=== PATIENT | female | born 1990 | race Caucasian/White ===

== ENCOUNTER 2016-10-17 13:46 | Emergency (ER) | payer BC ==
[2016-10-17 14:17] VITALS: BP 127/75
--- NOTE | 2016-10-17 14:33 | UC ---
[facility] HPI - HPI Summary HPI Summary: 26 year old female presents with complains of left lower molar abscess. - History of Current Complaint Chief Complaint: UCDentalProblem Stated Complaint: TOOTH PAIN Time Seen by Provider: 10/17/16 14:29 Hx Last Menstrual Period: 28 days - Allergies/Home Medications Allergies/Adverse Reactions: Allergies Allergy/AdvReac Type Severity Reaction Status Date / Time No Known Allergies Allergy Verified 10/17/16 14:18 Home Medications: Home Medications O C 1 tab PO DAILY 10/17/16 [History Confirmed 10/17/16] PMH/Surg Hx/FS Hx/Imm Hx Previously Healthy: Yes - Surgical History Surgical History: Yes Surgery Procedure, Year, and Place: Gallbladder 2011 - Family History Known Family History: Negative: Respiratory Disease - Social History Alcohol Use: Rare Substance Use Type: None Smoking Status (MU): Former Smoker Review of Systems Constitutional: Negative Skin: Negative Eyes: Negative ENT: Dental Pain Respiratory: Negative Cardiovascular: Negative Gastrointestinal: Negative Genitourinary: Negative Motor: Negative Neurovascular: Negative Musculoskeletal: Negative Neurological: Negative Psychological: Negative All Other Systems Reviewed And Are Negative: Yes Physical Exam Triage Information Reviewed: Yes Vital Signs: Initial Vital Signs Temp 37.1 C 10/17/16 14:11 Pulse 81 10/17/16 14:11 Resp 24 10/17/16 14:11 BP 127/75 10/17/16 14:11 Eye Exam: Normal ENT Exam: Normal Dental: Positive: Abscess @ - left lower molar Neck exam: Normal Neck: Positive: 1 Respiratory Exam: Normal Cardiovascular Exam: Normal Abdominal Exam: Normal Musculoskeletal Exam: Normal Neurological Exam: Normal Psychological Exam: Normal Skin Exam: Normal Dental Complaint Course/Dx - Differential Dx/Diagnosis Provider Diagnoses: left lower molar abscess Discharge - Discharge Plan Condition: Stable Disposition: HOME Prescriptions: Amoxicillin/Clavulanate TAB* [Augmentin TAB 875*] 875 mg PO BID #20 tab Chlorhexidine MW 0.12% 473ML* [Peridex Mouth Wash 0.12%*] 0.12 % MT TID PC #480 ml Naproxen [Naprosyn 500 mg] 500 mg PO BID PRN #30 tab PRN Reason: Pain Patient Education Materials: Dental Abscess (ED) Referrals: Non Staff,Doctor [Medical Doctor] -
== END 2016-10-17 14:45 | disposition home or self-care (01) ==
LOC: UCCORT 13:46
DX: K04.7 Periapical abscess without sinus (principal); Z90.49 Acquired absence of other specified parts of digestive tract; Z87.891 Personal history of nicotine dependence
CPT/HCPCS: 99212; G0463

== ENCOUNTER 2016-12-11 09:18 | Emergency (ER) | payer BC ==
[2016-12-11 09:45] VITALS: BP 129/68
--- NOTE | 2016-12-11 10:01 | UC ---
[facility] HPI - HPI Summary HPI Summary: 26 yo female had left lower molar removed 4 days ago pain markedly increased last PM unable to sleep no relief with motrin - History of Current Complaint Chief Complaint: UCDentalProblem Stated Complaint: DENTAL PAIN Time Seen by Provider: 12/11/16 09:48 Hx Obtained From: Patient Hx Last Menstrual Period: 11/12/16 Onset/Duration: Gradual Onset, Lasting Hours Severity: Severe Pain Intensity: 8 Pain Scale Used: 0-10 Numeric Aggravating Factor(s): Heat, Cold, Chewing Alleviating Factor(s): Nothing Related History: Swelling - Allergies/Home Medications Allergies/Adverse Reactions: Allergies Allergy/AdvReac Type Severity Reaction Status Date / Time No Known Allergies Allergy Verified 12/11/16 09:45 Home Medications: Home Medications Ibuprofen TAB* [Motrin TAB* 600 MG] 600 mg PO Q6H PRN 12/11/16 [History Confirmed 12/11/16] PMH/Surg Hx/FS Hx/Imm Hx Previously Healthy: Yes - Surgical History Surgical History: Yes Surgery Procedure, Year, and Place: Gallbladder 2011 - Family History Known Family History: Negative: Cardiac Disease, Hypertension, Diabetes, Respiratory Disease - Social History Alcohol Use: Rare Substance Use Type: None Smoking Status (MU): Never Smoked Tobacco - Immunization History Most Recent Influenza Vaccination: no Review of Systems Constitutional: Negative Skin: Negative Eyes: Negative ENT: Dental Pain Respiratory: Negative Cardiovascular: Negative Gastrointestinal: Negative Genitourinary: Negative Motor: Negative Neurovascular: Negative Musculoskeletal: Negative Neurological: Negative Psychological: Negative Is Patient Immunocompromised?: No All Other Systems Reviewed And Are Negative: Yes Physical Exam Triage Information Reviewed: Yes Appearance: Well-Appearing, Well-Nourished, Pain Distress Vital Signs: Initial Vital Signs Temp 98.3 F 12/11/16 09:41 Pulse 84 12/11/16 09:41 Resp 14 12/11/16 09:41 BP 129/68 12/11/16 09:41 Pulse Ox 99 12/11/16 09:41 Vital Signs Reviewed: Yes Eyes: Positive: Conjunctiva Clear ENT: Positive: Hearing grossly normal, TMs normal. Negative: Nasal congestion, Nasal drainage, Tonsillar exudate, Trismus, Muffled/hoarse voice Dental: Negative: Percussion Tenderness @, Gross Decay/Caries @, Dental Fracture @, Abscess @ Neck: Positive: Supple, Nontender, No Lymphadenopathy Respiratory: Positive: Lungs clear, Normal breath sounds, No respiratory distress, No accessory muscle use Cardiovascular: Positive: RRR, No Murmur Musculoskeletal: Positive: ROM Intact, No Edema Neurological: Positive: Alert Psychological Exam: Normal Skin Exam: Normal Dental Complaint Course/Dx - Differential Dx/Diagnosis Provider Diagnoses: Dry socket s/p extraction Discharge - Discharge Plan Condition: Stable Disposition: HOME Prescriptions: HYDROcodone/ACETAMIN 5-325 MG* [Braman 5-325 TAB*] 1 tab PO Q4H PRN #10 tab MDD 6 PRN Reason: Pain Penicillin VK 500 MG TAB(NF) [Penicillin VK 500 mg Tab] 500 mg PO QID #28 tab Patient Education Materials: Dry Socket (ED) Referrals: Herbert Nolen DO [Primary Care Provider] - Additional Instructions: continue ibuprofen call your dentist in AM Images Dental: 1 - empty socket-no clot
== END 2016-12-11 10:01 | disposition home or self-care (01) ==
LOC: UCCORT 09:18
DX: M27.3 Alveolitis of jaws (principal)
CPT/HCPCS: 99212; G0463

== ENCOUNTER 2017-02-11 19:38 | Emergency (ER) | payer BC ==
[2017-02-11 20:31] VITALS: BP 129/76
[2017-02-11] MEDS ORDERED: Amoxicillin PO (*) 500 MG CAP PO ONE (20:40)
--- NOTE | 2017-02-11 20:40 | UC ---
Dental HPI - HPI Summary HPI Summary: 1 st molar right lower dental pain tooth is broken- - History of Current Complaint Chief Complaint: UCDentalProblem Stated Complaint: TOOTH PAIN Time Seen by Provider: 02/11/17 20:35 Hx Obtained From: Patient Hx Last Menstrual Period: 01/20 ?: No Onset/Duration: Sudden Onset, Worse Since - this morning Severity: Moderate Pain Intensity: 8 Pain Scale Used: 0-10 Numeric Alleviating Factor(s): Nothing Related History: Previous Dental Care on Same Tooth - Allergies/Home Medications Allergies/Adverse Reactions: Allergies Allergy/AdvReac Type Severity Reaction Status Date / Time No Known Allergies Allergy Verified 02/11/17 20:31 PMH/Surg Hx/FS Hx/Imm Hx Previously Healthy: Yes - Surgical History Surgical History: Yes Surgery Procedure, Year, and Place: Gallbladder 2011 - Family History Known Family History: Negative: Cardiac Disease, Hypertension, Diabetes, Respiratory Disease - Social History Occupation: Employed Full-time Lives: With Family Alcohol Use: Rare Substance Use Type: None Smoking Status (MU): Never Smoked Tobacco - Immunization History Most Recent Influenza Vaccination: no Review of Systems Constitutional: Negative Skin: Negative Eyes: Negative ENT: Dental Pain Respiratory: Negative Cardiovascular: Negative Gastrointestinal: Negative Genitourinary: Negative Motor: Negative Neurovascular: Negative Musculoskeletal: Negative Neurological: Negative Psychological: Negative Is Patient Immunocompromised?: No All Other Systems Reviewed And Are Negative: Yes Physical Exam Triage Information Reviewed: Yes Appearance: Well-Appearing, Well-Nourished, Pain Distress Vital Signs: Initial Vital Signs Temp 97.9 F 02/11/17 20:27 Pulse 77 02/11/17 20:27 Resp 22 02/11/17 20:27 BP 129/76 02/11/17 20:27 Vital Signs Reviewed: Yes Eye Exam: Normal Eyes: Positive: Conjunctiva Clear ENT Exam: Normal ENT: Positive: Normal ENT inspection, Hearing grossly normal, Pharynx normal, TMs normal, Dental tenderness, Uvula midline. Negative: Nasal congestion, Nasal drainage, Trismus, Muffled voice, Hoarse voice, Sinus tenderness Dental Exam: Normal Dental: Positive: Gross Decay/Caries @, Dental Fracture @ Neck exam: Normal Neck: Positive: Supple, Nontender, No Lymphadenopathy Respiratory Exam: Normal Respiratory: Positive: Chest non-tender, Lungs clear, Normal breath sounds, No respiratory distress, No accessory muscle use Cardiovascular Exam: Normal Cardiovascular: Positive: RRR, No Murmur, Pulses Normal, Brisk Capillary Refill Musculoskeletal Exam: Normal Musculoskeletal: Positive: Strength Intact, ROM Intact, No Edema Neurological Exam: Normal Neurological: Positive: Alert, Muscle Tone Normal Psychological Exam: Normal Skin Exam: Normal Dental Complaint Course/Dx - Course Course Of Treatment: pain med amoxicillin follow with [facility] on Monday as planned - Differential Dx/Diagnosis Provider Diagnoses: Dental pain, broken right lower tooth Discharge - Discharge Plan Condition: Stable Disposition: HOME Prescriptions: Acetaminop/Codeine 30 MG TAB* [Tylenol/Codeine 30 MG TAB*] 1 tab PO Q4H PRN #20 tab MDD 6 PRN Reason: pain Amoxicillin PO (*) [Amoxicillin 500 MG CAP*] 500 mg PO TID #30 cap Patient Education Materials: Toothache (ED) Referrals: Herbert Nolen DO [Primary Care Provider] - Additional Instructions: Follow with [facility] on Monday as planned
[2017-02-11] MEDS ORDERED: Acetaminop/Codeine 30 MG TAB* 1 TAB (300 MG/30 MG) PO ONE (20:41)
--- OUTSIDE RECORDS SUMMARY | 2017-02-11 21:12 | XMS REPORT ---
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 Payers Type Date Identification Numbers Payment Provider Subscriber Health Maintenance Policy Number: BCBS o [employer] (O) [id number] PayID: [id number] [address] [address] [place] [address] Problems Date Description Provider Status Onset: 11/19/2012 Vesicular eczema of hands and/or feet Anastasia Adrian MD Active Onset: 11/07/2011 Varicose veins of lower extremity Anastasia Adrian MD Active Onset: 04/18/2011 Vitamin D deficiency Anastasia Adrian MD Active Onset: 01/11/2011 No current problems or disability Active Family History Date Family Member(s) Problem(s) Comments Father Osteoarthritis Mother Obesity Mother Depression Second Sister Obesity Social History Type Date Description Comments Marital Status Lives With Spouse Lives With Son Occupation [employer] Use Currently consumes alcohol Recreational Drug Use Denies Drug Use Smoking Patient has never smoked Allergies, Adverse Reactions, Alerts Date Description Reaction Status Severity Comments 09/17/2014 NKDA active Medications Medication Date Status Form Strength Qnty SIG Indications Ordering Provider Clindamycin/Benzo 10/27 Active Gel 1-5% 25gm 1 pea size L70.0 navarro Sanchez application blade Hopkins affected PA area once daily Betamethasone 07/26 Active Ointment 0.05% 15uni 1 L20.9 Sesser, Dipropionate ts application Kellie, to hands and PA behind ears twice daily Multivitamins 09/17 Active Capsules OTC 1 by mouth Callum, every day Herbert, DO Nucynta 12/14 Hx Tablets 50mg 28tab 1 by mouth Callum, s twice a day Herbert, - DO 02/01 Levonorgestrel/Et 12/08 Hx Tablets 0.1-20mg- 28tab 1 tablet by Callum hinyl Estradiol mcg s mouth daily Herbert, - DO 02/01 Acetaminophen-Cod 11/07 Hx Tablets 300-30mg 60tab 1 tablet by [id number] Callum eine #3 s mouth every Herbert, - 4 hours as DO 11/26 needed- not fill until 11/17/16 Amoxicillin/Clavu 10/27 Hx Tablets 875-125 20tab 1 by mouth Daniel, lanate Potassium s twice a day Kellie, - x 10 days PA 11/06 Levonorgestrel/Et 09/27 Hx Tablets 0.1-20mg- 28tab 1 tablet by Daniel , hinyl Estradiol mcg s mouth daily Kellie, - PA 10/31 Minocycline HCL 09/15 Hx Capsules 100mg 90cap 1 capsule L70.0 Daniel, s twice daily Kellie, - PA 09/27 Augmentin 05/13 Hx Tablets 500-125mg 20tab 1 by mouth H92.01 Stephanie, s twice a day Sukh, - DO 07/26 Ofloxacin (Otic) 03/25 Hx Solution 0.3% 10ml apply 3 H60.92 drops three Herbert, - times a day DO 03/25 to LEFT ear /2015 x 1 week Ciprofloxacin HCL 03/25 Hx Solution 0.2% 14uni 2 drops in H60.92 ts LEFT ear Herbert, - three times DO 05/13 a day x week Lyrica 01/29 Hx Capsules 75mg 60cap 1 po daily x M79.7 Callum, s 3 days, then Herbert, - 1 po bid DO 03/25 Duloxetine HCL 01/[address] 20mg 30cap 1 by mouth M79.7 , Part s every day Herbert, - *Rx is early DO 03/25 because attempted to increase to bid Trazodone HCL 01/12 Hx Tablets 50mg 60tab 1-2 by mouth M79.7 Nolen, s every night Herbert, - at bedtime DO 03/25 Prednisone 12/29 Hx Tablets 10mg 42tab 6 pills M60.89 Nolen, s daily x 2 Herbert, - days, the 5 01/08 pills daily x 2 day, 4 po daily x 2 day, 3 po daily x 2 day, 2 po daily x2, 1 po daily x 2 day Prednisone 12/23 Hx Tablets 10mg 21tab 6 pills M60.89 s daily x 1 Herbert, - day, the 5 12/29 pills daily x 1 day, 4 po daily x 1 day, 3 po daily x 1 day, 2 po daily x1, 1 po daily x 1 day Tizanidine HCL 12/18 Hx Tablets 4mg 30tab 1 by mouth M54.6 Nolen s every night Herbert, - at bedtime DO 01/19 Acetaminophen-Cod 11/21 Hx Tablets 300-30mg 30tab 1-2 by mouth Callum eine #3 s every 8 Herbert, - hours as DO 01/19 needed pain Levocetirizine 11/20 Hx Tablets 5mg 30tab 1 by mouth 477.9 Callum Dihydrochloride /2014 s every day Herbert, - DO 12/18 Meloxicam 11/20 Hx Tablets 15mg 30tab 1 by mouth 724.5 Nolen, /2014 s every day Herbert, - DO 12/18 Duloxetine HCL 10/[address] 20mg 30cap 1 by mouth 648.44 Nolen, Part s every day Herbert, - DO 12/18 Venlafaxine HCL 09/17 Hx Caps ER 37.5mg 30cap 1 by mouth 648.44 Callum, /2014 24HR s every day Herbert, - DO 10/13 Ashlyna 00/00 Hx Tablets 0.15-0.03 1 by mouth Ismael, /0000 &0.01 every day Jackeline - mg 11/20 Meloxicam 00 Hx Tablets 7.5mg 1 by mouth Unknown /0000 every day - 03/25 Naproxen Sodium 0000 Hx Tablets 550mg 1 by mouth Unknown /0000 twice a day - with food 07/26 Nucynta Hx Tablets 50mg 60tab One tablet Nolen, /0000 s by mouth Herbert, - twice daily DO 12/08 Gabapentin 00/ Hx Capsules 300mg 1 by mouth Unknown /0000 bid - 10/11 Nucynta ER 00 Hx Tablets 100mg 1 by mouth Unknown /0000 ER 12HR twice a day - 12/14 Immunizations CPT Code Status Date Vaccine Lot # [id number] Given 02/20/2012 Tdap (Adacel) Ages 7 And Above Only [id number] Given 11/07/2000 Hepatitis B Vac Ped/Adolescent 3 Dose Schedule Vital Signs Date Vital Result Comment 02/01/2017 Weight 195.00 lb Heart Rate 72 /min BP Systolic 130 mmHg BP Diastolic 70 mmHg Respiratory Rate 18 /min Height 65.75 inches 5'5.75" BMI (Body Mass Index) 31.7 kg/m2 12/08/2016 Weight 196.00 lb Heart Rate 68 /min BP Systolic 130 mmHg BP Diastolic 84 mmHg Respiratory Rate 18 /min Height 65.75 inches 5'5.75" BMI (Body Mass Index) 31.9 kg/m2 11/07/2016 Body Temperature 99.1 F Weight 200.00 lb Heart Rate 76 /min BP Systolic 140 mmHg BP Diastolic 100 mmHg BP Systolic Recheck 156 mmHg BP Diastolic Recheck 100 mmHg Respiratory Rate 18 /min Height 65.75 inches 5'5.75" BMI (Body Mass Index) 32.5 kg/m2 11/03/2016 Body Temperature 97.5 F Weight 199.00 lb Heart Rate 78 /min BP Systolic 138 mmHg BP Diastolic 96 mmHg Respiratory Rate 18 /min Height 65.75 inches 5'5.75" BMI (Body Mass Index) 32.4 kg/m2 10/27/2016 Weight 198.00 lb Heart Rate 80 /min BP Systolic 138 mmHg BP Diastolic 78 mmHg Respiratory Rate 17 /min Height 65.75 inches 5'5.75" BMI (Body Mass Index) 32.2 kg/m2 09/15/2016 Weight 201.00 lb Heart Rate 72 /min BP Systolic 132 mmHg BP Diastolic 80 mmHg Respiratory Rate 18 /min Height 65.75 inches 5'5.75" BMI (Body Mass Index) 32.7 kg/m2 08/04/2016 Weight 201.00 lb Heart Rate 72 /min BP Systolic 122 mmHg BP Diastolic 72 mmHg Respiratory Rate 18 /min Height 65.75 inches 5'5.75" BMI (Body Mass Index) 32.7 kg/m2 07/26/2016 Weight 199.00 lb Heart Rate 80 /min BP Systolic 116 mmHg BP Diastolic 74 mmHg Respiratory Rate 17 /min Height 65.75 inches 5'5.75" BMI (Body Mass Index) 32.4 kg/m2 05/13/2016 Body Temperature 98.8 F Weight 191.00 lb Heart Rate 78 /min BP Systolic 110 mmHg BP Diastolic 80 mmHg Respiratory Rate 18 /min Height 65.75 inches 5'5.75" BMI (Body Mass Index) 31.1 kg/m2 03/25/2015 Body Temperature 97.5 F Weight 204.00 lb Heart Rate 68 /min BP Systolic 132 mmHg BP Diastolic 70 mmHg Respiratory Rate 18 /min Height 66.5 inches 5'6.50" BMI (Body Mass Index) 32.4 kg/m2 01/29/2015 Weight 205.00 lb Heart Rate 72 /min BP Systolic 112 mmHg BP Diastolic 72 mmHg Respiratory Rate 18 /min Height 66.5 inches 5'6.50" BMI (Body Mass Index) 32.6 kg/m2 01/12/2015 Weight 208.00 lb Heart Rate 72 /min BP Systolic 140 mmHg BP Diastolic 78 mmHg Respiratory Rate 18 /min Height 66.5 inches 5'6.50" BMI (Body Mass Index) 33.1 kg/m2 12/23/2014 Weight 206.00 lb Heart Rate 70 /min BP Systolic 126 mmHg BP Diastolic 80 mmHg Respiratory Rate 18 /min Height 66.5 inches 5'6.50" BMI (Body Mass Index) 32.7 kg/m2 12/18/2014 Weight 210.00 lb Heart Rate 88 /min BP Systolic 126 mmHg BP Diastolic 84 mmHg Respiratory Rate 17 /min Height 66.5 inches 5'6.50" BMI (Body Mass Index) 33.4 kg/m2 11/20/2014 Body Temperature 98.2 F Weight 207.00 lb Heart Rate 70 /min BP Systolic 124 mmHg BP Diastolic 70 mmHg Respiratory Rate 18 /min Height 66.5 inches 5'6.50" BMI (Body Mass Index) 32.9 kg/m2 11/03/2014 Weight 209.00 lb Heart Rate 82 /min BP Systolic 130 mmHg BP Diastolic 80 mmHg Respiratory Rate 18 /min Height 66.5 inches 5'6.50" BMI (Body Mass Index) 33.2 kg/m2 10/13/2014 Weight 209.00 lb Heart Rate 72 /min BP Systolic 120 mmHg BP Diastolic 70 mmHg Respiratory Rate 18 /min Height 66.5 inches 5'6.50" BMI (Body Mass Index) 33.2 kg/m2 09/17/2014 Weight 209.00 lb Heart Rate 76 /min BP Systolic 130 mmHg BP Diastolic 90 mmHg Respiratory Rate 18 /min Height 67 inches 5'7" BMI (Body Mass Index) 32.7 kg/m2 01/14/2014 Body Temperature 98.5 F Weight 185.00 lb Heart Rate 72 /min BP Systolic 122 mmHg BP Diastolic 74 mmHg Respiratory Rate 18 /min Height 67 inches 5'7" 10/23/2013 Weight 187.00 lb Heart Rate 72 /min BP Systolic 128 mmHg BP Diastolic 80 mmHg Respiratory Rate 18 /min Height 67 inches 5'7" 10/10/2013 Weight 190.00 lb Heart Rate 74 /min BP Systolic 136 mmHg BP Diastolic 90 mmHg Respiratory Rate 18 /min Height 67 inches 5'7" 07/24/2013 Body Temperature 98.6 F Weight 187.00 lb Heart Rate 72 /min BP Systolic 122 mmHg BP Diastolic 78 mmHg Respiratory Rate 18 /min Height 67 inches 5'7" 06/10/2013 Weight 186.00 lb Heart Rate 60 /min BP Systolic 116 mmHg BP Diastolic 78 mmHg Respiratory Rate 18 /min Height 67 inches 5'7" 04/11/2013 Weight 193.00 lb Heart Rate 74 /min BP Systolic 124 mmHg BP Diastolic 68 mmHg Respiratory Rate 18 /min 11/19/2012 Body Temperature 99.0 F Weight 190.00 lb Heart Rate 72 /min BP Systolic 120 mmHg BP Diastolic 80 mmHg Respiratory Rate 17 /min 10/26/2012 Weight 190.00 lb Heart Rate 76 /min BP Systolic 120 mmHg BP Diastolic 80 mmHg Respiratory Rate 18 /min 05/17/2012 Body Temperature 99.9 F Weight 183.00 lb Heart Rate 99 /min BP Systolic 118 mmHg BP Diastolic 84 mmHg O2 % BldC Oximetry 98 % 05/14/2012 Body Temperature 99.8 F Weight 186.00 lb Heart Rate 76 /min BP Systolic 128 mmHg BP Diastolic 80 mmHg Respiratory Rate 18 /min 04/27/2012 Body Temperature 98.7 F Weight 182.00 lb Heart Rate 88 /min BP Systolic 126 mmHg BP Diastolic 86 mmHg Respiratory Rate 17 /min 02/20/2012 Weight 182.00 lb Heart Rate 84 /min BP Systolic 114 mmHg BP Diastolic 80 mmHg Respiratory Rate 17 /min 12/17/2011 Body Temperature 98.2 F Weight 175.31 lb Heart Rate 80 /min BP Systolic 130 mmHg BP Diastolic 82 mmHg Respiratory Rate 18 /min Height 67 inches 5'7" 11/07/2011 Body Temperature 98.2 F Weight 172.00 lb Heart Rate 76 /min BP Systolic 120 mmHg BP Diastolic 70 mmHg Respiratory Rate 18 /min Height 67 inches 5'7" 10/13/2011 Weight 177.00 lb Heart Rate 76 /min BP Systolic 110 mmHg BP Diastolic 74 mmHg Respiratory Rate 20 /min 09/09/2011 Weight 173.00 lb Heart Rate 80 /min BP Systolic 112 mmHg BP Diastolic 80 mmHg Respiratory Rate 15 /min Height 67 inches 5'7" 07/05/2011 Body Temperature 98.2 F Weight 173.00 lb Heart Rate 88 /min BP Systolic 126 mmHg BP Diastolic 88 mmHg Respiratory Rate 17 /min 06/25/2011 Body Temperature 98.6 F Weight 171.56 lb Heart Rate 92 /min BP Systolic 132 mmHg BP Diastolic 78 mmHg Respiratory Rate 18 /min 06/01/2011 Weight 169.00 lb Heart Rate 84 /min BP Systolic 110 mmHg BP Diastolic 82 mmHg Respiratory Rate 16 /min 05/16/2011 Body Temperature 98.6 F Weight 172.50 lb Heart Rate 93 /min BP Systolic 110 mmHg BP Diastolic 80 mmHg Respiratory Rate 17 /min Height 66.5 inches 5'6.50" 03/15/11 04/18/2011 Weight 171.00 lb Heart Rate 80 /min BP Systolic 120 mmHg BP Diastolic 84 mmHg Respiratory Rate 16 /min Height 66.5 inches 5'6.50" 04/11/2011 Body Temperature 98.8 F Weight 175.12 lb Heart Rate 80 /min BP Systolic 122 mmHg BP Diastolic 82 mmHg Respiratory Rate 18 /min Height 66.5 inches 5'6.50"03/15/2011 Weight 177.00 lb Heart Rate 80 /min BP Systolic 118 mmHg BP Diastolic 76 mmHg Respiratory Rate 17 /min Height 66.5 inches 5'6.50" 01/11/2011 Weight 177.00 lb Heart Rate 78 /min BP Systolic 124 mmHg BP Diastolic 82 mmHg Respiratory Rate 17 /min Height 66.5 inches 5'6.50" 05/15/2008 Body Temperature 97.6 F Weight 173.00 lb Heart Rate 85 /min BP Systolic 112 mmHg BP Diastolic 80 mmHg Respiratory Rate 15 /min O2 % BldC Oximetry 98 % 04/17/2008 Weight 175.00 lb Heart Rate 86 /min BP Systolic 140 mmHg BP Diastolic 88 mmHg Respiratory Rate 14 /min 03/17/2008 Body Temperature 98.6 F Weight 171.00 lb Heart Rate 90 /min BP Systolic 116 mmHg BP Diastolic 76 mmHg Respiratory Rate 15 /min O2 % BldC Oximetry 98 % 12/12/2007 Body Temperature 99.6 F Weight 166.00 lb Heart Rate 78 /min BP Systolic 112 mmHg BP Diastolic 66 mmHg Respiratory Rate 14 /min 10/17/2007 Weight 156.00 lb Heart Rate 80 /min BP Systolic 128 mmHg BP Diastolic 68 mmHg Respiratory Rate 18 /min 06/20/2007 Weight 163.00 lb Heart Rate 61 /min BP Systolic 112 mmHg BP Diastolic 80 mmHg Respiratory Rate 16 /min 04/13/2007 Weight 163.00 lb Heart Rate 83 /min BP Systolic 120 mmHg BP Diastolic 80 mmHg Respiratory Rate 18 /min 07/28/2006 Weight 161.00 lb Heart Rate 60 /min BP Systolic 98 mmHg BP Diastolic 60 mmHg Respiratory Rate 18 /min 06/28/2006 Body Temperature 98.7 F Weight 162.38 lb Heart Rate 60 /min BP Systolic 124 mmHg BP Diastolic 70 mmHg Respiratory Rate 18 /min Height 67 inches 5'7" 06/08/2006 Body Temperature 99.2 F Weight 163.00 lb Heart Rate 71 /min BP Systolic 120 mmHg BP Diastolic 70 mmHg Respiratory Rate 17 /min 05/03/2006 Weight 163.00 lb Heart Rate 85 /min BP Systolic 120 mmHg BP Diastolic 70 mmHg 02/17/2006 Body Temperature 97.6 F Weight 165.00 lb Heart Rate 68 /min BP Systolic 110 mmHg BP Diastolic 60 mmHg Respiratory Rate 16 /min Height 66.50 inches 5'6.50" 01/17/2006 Body Temperature 98.6 F Weight 170.00 lb Heart Rate 72 /min BP Systolic 120 mmHg BP Diastolic 70 mmHg Respiratory Rate 16 /min Height 67 inches 5'7" 09/24/2005 Weight 162.31 lb Heart Rate 70 /min BP Systolic 118 mmHg BP Diastolic 68 mmHg Respiratory Rate 18 /min Height 67 inches 5'7" 08/05/2005 Weight 162.50 lb Heart Rate 96 /min BP Systolic 122 mmHg BP Diastolic 86 mmHg Respiratory Rate 16 /min 06/06/2005 Weight 162.00 lb Heart Rate 84 /min Reg BP Systolic 116 mmHg LEFT BP Diastolic 80 mmHg LEFT 07/27/2004 Body Temperature 98.1 F Weight 154.00 lb Heart Rate 72 /min BP Systolic 104 mmHg BP Diastolic 70 mmHg Respiratory Rate 16 /min 06/08/2004 Body Temperature 97.8 F Weight 156.00 lb Heart Rate 80 /min BP Systolic 120 mmHg BP Diastolic 78 mmHg Respiratory Rate 14 /min Results Test Date Test Result H/L Range Note Laboratory test finding 12/23/2014 Amy Screen Neg Neg CPK 46 U/L 12-199 CRP (C-Reactive) 1.95 mg/dL High 0.00-0.75 Esr 21 mm/hr High 0-20 Rheumatoid Factor <10.0 IU/mL 0.0-10.0 Laboratory test finding 12/23/2014 Scleroderma Igg AB NEGATIVE INDEX (Neg ) 1 CBC With Auto Diff 10/13/2014 WBC 10.2 K/uL 4.1-11.0 RBC 4.77 M/uL 4.00-5.40 Hemoglobin 13.6 gm/dL 12.0-16.0 Hematocrit 41.4 % 36.0-47.0 MCV 86.7 fL 80.0-97.0 MCH 28.4 pg 27.0-32.0 MCHC 32.7 g/dL 32.0-36.0 RDW 14.5 % 11.5-14.5 PLT Count 257 K/ul 140-400 Neutrophil 70.5 % 35.0-75.0 Lymphocyte 23.2 % 16.0-52.0 Monocyte 4.8 % 2.0-10.0 Eosinophil 1.0 % 0.0-5.0 Basophil 0.5 % 0.0-4.0 Abs Neutrophils 7.2 K/uL 2.1-8.0 Abs Lymphocytes 2.4 K/uL 0.8-5.5 Abmon 0.5 K/uL 0.1-1.0 Abs Eosinophils 0.1 K/uL 0.0-0.5 Abs Basophils 0.1 K/uL 0.0-0.3 Comprehensive Metabolic (CMP) 10/13/2014 Sodium 140 mmol/L 134-142 Potassium 4.0 mmol/L 3.5-5.2 Chloride 105 mmol/L 97-109 Carbon Dioxide 27 mmol/L 24-34 Glucose 86 mg/dL 70-105 BUN 10 mg/dL 6-26 Creatinine 0.8 mg/dL 0.5-1.4 Calcium 9.2 mg/dL 8.5-10.2 Total Protein 6.7 g/dL 6.0-8.0 Albumin 4.1 g/dL 3.6-4.9 Globulin 2.6 g/dL 2.0-3.5 A/G Ratio 1.6 Ratio 1.0-2.2 Total Bilirubin 0.3 mg/dL 0.1-1.3 Alkaline Phosphatase 78 U/L 24-140 Alt 31 U/L 3-42 Ast 25 U/L 8-42 Anion Gap 12 mmol/L 6-14 Allison Egfr >60 >60 2 Non Allison Egfr >60 >60 3 Laboratory test finding 10/13/2014 Esr 20 mm/hr 0-20 TSH 0.92 uIU/mL 0.35-4.94 Laboratory test finding 10/13/2014 Lyme Igm/Igg AB NEGATIVE (Neg) 4 Laboratory test finding 07/12/2014 Hematocrit 29.3 36.0-46.1 Hemoglobin 9.3 Low 11.6-15.8 Laboratory test finding 07/09/2014 Mean Corpuscular Hemoglobin 30.6 25.9- 32.7 Mean Corpuscular Hemoglobin Concent 33.2 30.8-34.3 Mean Corpuscular Volume 92.4 80.9-99.0 Mean Platelet Volume 11.0 8.9-12.4 Platelet Count 233 155-360 RDW Coefficient of Variation 13.9 11.7-14.4 Red Blood Count 4.34 3.90-5.40 White Blood Count 14.2 High 3.1-10.7 Laboratory test 06/02/2014 Group B Streptococcus No Group B finding Screen (Amauri) Streptococci Isolated Laboratory test 10/23/2013 HCG, Quant 34.0 mIU/mL 5 finding Testosterone,Free/W 08/01/2013 Testosterone,%Free/Wea 9.9 % 3.0-18.0 eakly Bound kly BND Testosterone,Free+Weakly Bound 3.0 ng/dL 0.0-9.5 6 Testosterone,Serum 30 ng/dL 8-48 Laboratory test finding 08/01/2013 Dhea Sulfate 285.8 g/dL 110.0-431.7 Prolactin 13.9 ng/mL 3.24-29.12 Laboratory test finding 07/24/2013 % Baso. 0.8 % 0.0-2.0 % Eos. 1.3 % 0.0-4.0 % Lymph 29 % 20-44 % Swift 5.3 % 2.0-10.0 % Mark 64 % 50-70 A/G Ratio 1.6 ratio Low 1.6-2.2 Absolute Baso. 0.1 K/ul 0.0-0.3 Absolute Eos. 0.1 K/ul 0.0-0.5 Absolute Lymph. 3.0 K/ul 0.8-4.8 Absolute Swift. 0.5 K/ul 0.1-1.0 Absolute Mark. 6.51 K/ul 2.05-7.63 Albumin 4.2 g/dL 3.5-5.0 Alk. Phos. 70.0 U/L 30.0-126.0 Alt 17.0 U/L 9.0-52.0 Anion Gap 10.0 mmol/L 10.0-20.0 Antigliadin Abs, IgA 1 units 0-19 7 Antigliadin Abs, IgG 2 units 0-19 8 Ast 22.0 U/L 14.0-36.0 BUN 14.0 mg/dL 7.0-18.0 BUN/Creat Ratio 17.5 ratio 12.0-20.0 Calcium 9.7 mg/dL 8.7-10.5 Chloride 106.0 mmol/L 98.0-107.0 Co2 25.0 mmol/L 22.0-30.0 Creatinine-Serum 0.8 mg/dL 0.7-1.2 Endomysial IgA Antibody Negative Negative Esr Sedrate 11.0 sec 0.0-25.0 Globulin 2.7 g/dL 2.7-4.3 Glucose 108.0 mg/dL 75.0-110.0 HCT 39.2 % 37.0-51.0 HGB 13.6 Gm/dl 12.0-16.0 Immunoglobulin A 115 mg/dL 91-414 MCH 30.2 pg 26.0-32.0 MCHC 34.7 g/dL 31.0-36.0 MCV 87.2 Fl 80.0-97.0 MPV 7.2 fL 6.0-10.0 PLT 267 K/ul 140-440 Potasium 3.7 mmol/L 3.6-5.0 RBC 4.5 M/ul 4.2-6.3 RDW 12.2 % 11.5-14.5 Sodium 141.0 mmil/L 137.0-145.0 TSH 1.13 uIU/ml 0.50-6.00 Thyroid Antithyroglobulin AB < 1.0 Iu/ml 0.0-0.9 9 Thyroid Peroxidase Antibodies 12 IU/mL 0-34 10 Total Bilirubin 0.3 mg/dL 0.2-1.3 Total Protein 6.9 g/dL 6.3-8.2 WBC 10.3 K/ul 4.1-10.9 eGFR 93.3 mi/minper1.73 11 t-Transglutaminase IgA <2 U/mL 0-3 12 t-Transglutaminase IgG <2 U/mL 0-5 13 Sjogren's Antibodies 07/24/2013 Sjogrens Antibodies (SSB) <0.2 0.0- 0.9 Sjogrens Antibodies (Ssa) <0.2 0.0-0.9 Laboratory test finding 10/26/2012 Culture Urine See Note 14 Laboratory test finding 04/27/2012 Throat Culture Complete See Note 15 Laboratory test finding 12/17/2011 Urine Culture See Note 16 Laboratory test finding 11/07/2011 Absolute Basophils 0.068 K/ul 0.0-0.3 17 Absolute Eosinophils 0.051 K/ul 0.0-0.5 17 Absolute Lymphocytes 1.53 K/ul 0.8-4.8 17 Absolute Monocytes 0.424 K/ul 0.1-1.0 17 Absolute Neutrophils 4.79 K/ul 2.05-7.63 17 Anion Gap 11 mmol/L 10-20 17 BUN 12 mg/dL 7-18 17 BUN/CR Ratio 17.5 Ratio 12-20 17 Basophil 1.0 % 0-2 17 Calcium 9.6 mg/dL 8.7-10.5 17 Carbon Dioxide 27 mmol/L 22-30 17 Chloride 104 mmol/L 98-107 17 Creatinine, Serum 0.7 mg/dL 0.7-1.2 17 Eosinophil 0.7 % 0-4 17 Gamma Glutamyl Transpeptidase 31 U/L 8-35 17, 18 Glucose 94 mg/dL 65-105 17 Hematocrit 41.7 % 37.0-51.0 17 Hemoglobin 13.7 GM/dl 12.0-16.0 17 Lipase,Serum 96 U/L 28-380 17, 19 Lymphocytes 22.3 % 20-44 17 MCH 29.1 pg 26.0-32.0 17 MCHC 32.9 g/dL 31.0-36.0 17 MCV 88 FL 80-97 17 Monocytes 6.2 % 2-10.0 17 Neutrophils 69.8 % 50-70 17 Platelet Count 244 K/ul 140-440 17 Potassium 3.8 mmol/L 3.6-5.0 17 RBC 4.71 M/ul 4.2-6.3 17 RDW 12.1 % 11.5-14.5 17 Sodium 139 mmol/L 137-145 17 WBC 6.9 K/ul 4.1-10.9 17 Hepatic Function 11/07/2011 Albumin 4.2 g/dL 3.5-5.0 17 Alkaline Phosphatase 101 U/L 30-126 17 Alt 24 U/L 9-52 17 Ast 35 U/L 14-36 17 Total Bilirubin 1.0 mg/dL 0.2-1.3 17 Total Protein 7.3 g/dL 6.3-8.2 17 Laboratory test finding 06/25/2011 Throat Culture See Note neg 20 Complete Laboratory test finding 04/11/2011 Culture Urine See Note 21 Vitamin B12 And Folate 03/15/2011 Folic Acid 49.7 ng/mL High 6.0-15.4 22 Vitamin B12 547 pg/mL 311-1180 22 Laboratory test finding 03/15/2011 Absolute Basophils 0.097 K/ul 0.0-0.3 22 Absolute Eosinophils 0.124 K/ul 0.0-0.5 22 Absolute Lymphocytes 2.23 K/ul 0.8-4.8 22 Absolute Monocytes 0.448 K/ul 0.1-1.0 22 Absolute Neutrophils 5.31 K/ul 2.05-7.63 22 Basophil 1.2 % 0-2 22 Eosinophil 1.5 % 0-4 22 Hematocrit 44.7 % 37.0-51.0 22 Hemoglobin 14.8 GM/dl 12.0-16.0 22 Lymphocytes 27.2 % 20-44 22 MCH 28.6 pg 26.0-32.0 22 MCHC 33.1 g/dL 31.0-36.0 22 MCV 86 FL 80-97 22 Monocytes 5.5 % 2-10.0 22 Neutrophils 64.7 % 50-70 22 Platelet Count 292 K/ul 140-440 22 RBC 5.17 M/ul 4.2-6.3 22 RDW 11.8 % 11.5-14.5 22 TSH 1.553 uIU/ml 0.50-6.00 22 Vitamin D,25-Hydroxy 24.3 ng/mL Low 30.0-100.0 22, 23 WBC 8.2 K/ul 4.1-10.9 22 Laboratory test finding 03/15/2011 Aerobic Culture See Note 24 Gram Stain See Note 25 Laboratory test finding 02/18/2011 Gallbladder See Note 26 Laboratory test finding 02/15/2011 Alb/Glob 0.9 ratio Albumin 3.7 g/dL 3.5-5.0 Alkaline Phosphatase 83 U/L 50-136 Anion Gap 14 mEq/L 8-16 BUN 12 mg/dL 5-23 BUN/Creat 15.0 ratio Bilirubin,Direct < 0.1 mg/dL Low 0.1-0.4 Bilirubin,Indirect 0.3 mg/dL 0.0-0.9 Bilirubin,Total 0.4 mg/dL 0.2-1.2 Calcium 9.7 mg/dL 8.5-10.1 Carbon Dioxide 24 mEq/L 18-29 Chloride 105 mmol/L 98-107 Creatinine 0.8 mg/dL 0.5-1.4 Globulin 4.0 g/dL 1.9-4.3 Glom Filtration Rate, Estimate >60 mL/min >60 Glucose 80 mg/dL 76-115 Hematocrit 43.6 % 36.0-46.1 Hemoglobin 14.6 gm/dL 11.6-15.8 If >60 mL/min >60 27 Mean Cell Volume 88.1 fl 80.9-99.0 Mean Corpuscular HGB 29.5 pg 25.9-32.7 Mean Corpuscular HGB Conc 33.5 g/dL 30.8-34.3 Mean Platelet Volume 11.2 fL 8.9-12.4 Platelet Count 303 K/uL 155-360 Potassium 3.8 mmol/L 3.5-5.1 Red Blood Count 4.95 M/uL 3.90-5.40 Red Cell Distri Width %CV 13.3 % 11.7-14.4 SGPT/Alt 19 U/L Low 30-65 Sgot/Ast 17 U/L 16-40 Sodium 139 mmol/L 136-145 Total Protein 7.7 g/dL 6.3-8.0 Urine HCG (Qualitative) Negative Negative 28 White Blood Count 8.3 K/uL 3.1-10.7 Urine Screen 02/15/2011 Urine Bilirubin - Dipstick Negative Negative Urine Blood Negative Negative Urine Clarity Clear Clear Urine Color Yellow Yellow Urine Glucose - Dipstick Negative mg/dL Negative Urine Ketone Negative mg/dL Negative Urine Leuk Esterase Negative Negative Urine Nitrite - Dipstick Negative Negative Urine PH 6.0 Low 6.5-7.5 Urine Protein - Dipstick Negative mg/dL Negative Urine Specific Ramona >=1.030 1.010-1.030 Urine Urobilinogen - Dipstick 0.2 E.U./dL 0.2-1.0 Laboratory test finding 01/11/2011 Absolute Basophils 0.080 K/ul 0.0-0.3 29 Absolute Eosinophils 0.095 K/ul 0.0-0.5 29 Absolute Lymphocytes 2.24 K/ul 0.8-4.8 29 Absolute Monocytes 0.598 K/ul 0.1-1.0 29 Absolute Neutrophils 4.28 K/ul 2.05-7.63 29 Anion Gap 15 mmol/L 10-20 29 BUN 10 mg/dL 7-18 29 BUN/CR Ratio 15.3 Ratio 12-20 29 Basophil 1.1 % 0-2 29 Calcium 10.2 mg/dL 8.7-10.5 29 Carbon Dioxide 27 mmol/L 22-30 29 Chloride 105 mmol/L 98-107 29 Creatinine, Serum 0.7 mg/dL 0.7-1.2 29 Eosinophil 1.3 % 0-4 29 Glucose 81 mg/dL 65-105 29 Hematocrit 45.6 % 37.0-51.0 29 Hemoglobin 14.3 GM/dl 12.0-16.0 29 Lymphocytes 30.7 % 20-44 29 MCH 27.0 pg 26.0-32.0 29 MCHC 31.5 g/dL 31.0-36.0 29 MCV 86 FL 80-97 29 Monocytes 8.2 % 2-10.0 29 Neutrophils 58.7 % 50-70 29 Platelet Count 259 K/ul 140-440 29 Potassium 4.6 mmol/L 3.6-5.0 29 RBC 5.31 M/ul 4.2-6.3 29 RDW 11.7 % 11.5-14.5 29 Sodium 142 mmol/L 137-145 29 WBC 7.3 K/ul 4.1-10.9 29 Hepatic Function 01/11/2011 Albumin 4.4 g/dL 3.5-5.0 29 Alkaline Phosphatase 85 U/L 30-126 29 Alt 31 U/L 9-52 29 Ast 35 U/L 14-36 29 Total Bilirubin 0.5 mg/dL 0.2-1.3 29 Total Protein 7.9 g/dL 6.3-8.2 29 Laboratory test finding 01/11/2011 Amylase 58 U/L 18-98 30 Laboratory test finding 05/15/2008 Culture Throat Normal Throat [place] <See 31 Note> Laboratory test finding 04/17/2008 Cytology Pap See Note 32 GC / Chlamydia See Note 33 Laboratory test finding 03/17/2008 Rapid Strep Test negative Laboratory test finding 03/17/2008 Culture Throat <see comment> 34 Laboratory test finding 12/12/2007 Culture Throat <see comment> 35 Laboratory test finding 12/12/2007 Rapid Strep Test Negative Laboratory test finding 04/13/2007 Cytology Pap See Note 36 GC / Chlamydia See Note 37 Laboratory test 06/28/2006 Test, Urine neg finding Laboratory test 06/08/2006 Culture Throat Normal Throat FL 38 finding <See Note> Laboratory test 06/08/2006 Rapid Strep Test Negative finding Laboratory test 01/17/2006 Culture Throat <see comment> 39, 40 finding Laboratory test 01/17/2006 Rapid Strep Test negative finding 1 Unless otherwise specified, testing performed by [email or web address] [address] [place] [id number] 2 Concerning GFR Guidelines for Americans: Normal function or mild renal disease, if clinically at risk: >/=60 mL/min Moderately decreased: 30-59 Severely decreased: 15-29 Renal failure: <15 3 Concerning GFR Guidelines: Normal function or mild renal disease, if clinically at risk: >/=60 mL/min Moderately decreased: 30-59 Severely decreased: 15-29 Renal failure: <15 Glomerular Filtration Rate (GFR) is estimated based on the MDRD equation, which assumes a steady state for creatinine as recommended by the National Kidney Disease Education Program in conjunction with the National Institutes of Health and the National Kidney Foundation. Clinical conditions in which it may be necessary to measure GFR by using clearance methods include extremes of age and body size, severe malnutrition or obesity, diseases of skeletal muscle, paraplegia or quadriplegia, vegetarian diet, rapidly changing kidney function, and calculation of the dose of potentially toxic drugs that are excreted by the kidneys. 4 A Negative serologic test for Lyme Disease indicates no serologic evidence of infection with B burgdorferi at the time this specimen was collected. A repeat specimen should be collected in 2 to 4 weeks if clinically indicated. Unless otherwise specified, testing performed by [facility] [address] [place] [id number] 5 Approximate Gestational Age and Total BHCG Range: 0.2 - 1 Week........................5-50 mIU/mL 1 - 2 Weeks.....................50- 500 mIU/mL 2 - 3 Weeks..................100-5,000 mIU/mL 3 - 4 Weeks.................500-10,000 mIU/mL 4 - 5 Weeks...............1,000-50, 000 mIU/mL 5 - 6 Weeks.............10,000-100,000 mIU/mL 6 - 8 Weeks.............15,000-200,000 mIU/mL 2 - 3 Months............10,000-100, 000 mIU/mL 6 Performed at: [address] [id number] Cable Tester: Liz Dexter MD, Phone: [phone] Performed at: [address] [id number] Cable Tester: Terry Morrison MD, Phone: [phone] 7 Negative 0 - 19 Weak Positive 20 - 30 Moderate to Strong Positive >30 8 Negative 0 - 19 Weak Positive 20 - 30 Moderate to Strong Positive >30 9 Low positive Thyroglobulin antibodies are seen in a portion of the asymptomatic populations. Antithyroglobulin antibodies measured by [employer] 10 Performed at: [address] [id number] Cable Tester: Liz Dexter MD, Phone: [phone] 11 For -Swazi patients multiply result by 1.180 12 Negative 0 - 3 Weak Positive 4 - 10 Positive >10 Tissue Transglutaminase (tTG) has been identified as the endomysial antigen. Studies have demonstr- ated that endomysial IgA antibodies have over 99% specificity for gluten sensitive enteropathy. 13 Negative 0 - 5 Weak Positive 6 - 9 Positive >9 14 COLONY COUNT ! 40,000-50,000 CFU/ml Organism 1 ! ESCHERICHIA COLI QUANTITY ! MODERATE Organism 2 ! URETHRAL ABHIJEET ESCHERICHIA COLI Target Route Dose M.I.C. RX AB COST ------ ----- -------- ------ -- ------ NITROFURANTOIN 64 I TRIMETHOPRIM/SULFAMETHOXAZOLE <=20 S AMPICILLIN >=32 R CEFAZOLIN <= 4 S AMPICILLIN/SULBACTAM 16 I CIPROFLOXACIN <=0.25 S PIPERACILLIN/TAZOBACTAM & lt;=4 S CEFTAZIDIME <=1 S CEFTRIAXONE <=1 S CEFEPIME <=1 S LEVOFLOXACIN <=0.12 S IMIPENEM <=0.25 S GENTAMICIN <=1 S TOBRAMYCIN <=1 S 15 Organism 1 ! BETA HEMOLYTIC STREP NON A QUANTITY ! MANY 16 COLONY COUNT ! >100,000 CFU/ml Organism 1 ! PROTEUS MIRABILIS QUANTITY ! MANY Organism 2 ! URETHRAL ABHIJEET PROTEUS MIRABILIS Target Route Dose M.I.C. RX AB COST ------ ----- -------- ------ -- ------ NITROFURANTOIN 128 R TRIMETHOPRIM/SULFAMETHOXAZOLE <=20 S AMPICILLIN <=2 S CEFAZOLIN 8 S AMPICILLIN/SULBACTAM <=2 S CIPROFLOXACIN <=0.25 S CEFTAZIDIME <=1 S CEFTRIAXONE <=1 S CEFEPIME <=1 S LEVOFLOXACIN <=0.12 S GENTAMICIN & lt;=1 S CEFOXITIN 8 S PIPERACILLIN <=4 S 17 today 18 today 19 today 20 NORMAL THROAT ABHIJEET 21 COLONY COUNT ! 10,000 - 20,000 CFU/ml Organism 1 ! URETHRAL ABHIJEET 22 today ,letter, ov 1 m 23 Vitamin D deficiency has been defined by the [place] of Medicine and an Endocrine Society practice guideline as a level of serum 25-OH vitamin D less than 20 ng/mL (1,2). The Endocrine Society went on to further define vitamin D insufficiency as a level between 21 and 29 ng/mL (2). 1. IOM ([place] of Medicine). 2011. Dietary reference intakes for calcium and D. Michael [place]: The National Academies Press. 2. Jessica MF, Nina NC, Debby PORTER, et al. Evaluation, treatment, and prevention of vitamin D deficiency: an Endocrine Society clinical practice guideline. JCEM. 2010; 96(7):1911-30. Performed at: RN - [facility] [address] [id number] Cable Tester: Isaac Liriano MD, Phone: [phone] 24 Organism 1 ! STAPHYLOCOCCUS AUREUS QUANTITY ! MANY Organism 2 ! BETA STREPTOCOCCUS GROUP B QUANTITY ! MANY RECOMMENDED THERAPY: ! PENICILLIN OR AMPICILLIN. STAPHYLOCOCCUS AUREUS Target Route Dose M.I.C. RX AB COST ------ ----- ------ ---- -------- ------ -- ------ PENICILLIN G >=0.5 R OXACILLIN <=0.25 S TETRACYCLINE <=1 S TRIMETHOPRIM/SULFAMETHOXAZOLE BLOOD PO DS <=10 S 0.39 AMOXICILLIN R AMOXICILLIN/CLAVULANATE S AMPICILLIN/SULBACTAM S CEFAZOLIN S GENTAMICIN <=0.5 S ERYTHROMYCIN <=0.25 S CLINDAMYCIN BLOOD PO 300 mg <=0.25 S 0.81 IV 600 mg S 3.01 CIPROFLOXACIN <=0.5 S LEVOFLOXACIN 0.25 S CEFACLOR S AZITHROMYCIN S CEFUROXIME S PIPERACILLIN R CEFTRIAXONE S VANCOMYCIN <=0.5 S 25 GRAM STAIN ! FEW GRAM POSITIVE COCCI 26 OPERATION/PROCEDURE Cholecystectomy, laparoscopic DIAGNOSIS: "GALLBLADDER": CHRONIC CHOLECYSTITIS, CHOLESTEROLOSIS AND CHOLELITHIASIS. NO EVIDENCE OF ACUTE INFLAMMATION, DYSPLASIA NOR NEOPLASIA APPRECIATED. Ramone 11: 59:28 AM GROSS The specimen is received in formalin labeled, "GALLBLADDER" is a 7.5 x 3.5 x 3.2 cm. gonzalez-purple, soft gallbladder with a smooth serosal surface. Upon opening it contains approximately 20 mL of light brown bile and 1.8 x 1.3 x 1.3 cm. yellow stone. The wall of the gallbladder measures up to 0.2 cm. in thickness. The mucosa is gonzalez, velvety with fried streaks. No tumor, necrosis nor purulent exudates are seen. Martial Arts Instructor sections are submitted in one block. WALT/leroy MICROSCOPIC Sections show gallbladder mucosa lined by columnar epithelium with focal synechia, and Rokitansky-Aschoff sinus formation. The submucosa has a mild infiltrate of lymphocytes and plasma cells. Foamy histiocytes are noted within the tips of papillae. The muscular wall is slightly fibrotic and hypertrophied. PRE OPERATIVE DIAGNOSIS Chronic cholecystitis, cholelithiasis REVIEW CODE CODE: I ----- TERRY Tay MD 02/21/11 1502 ----- 27 Note: Persistent reduction for 3 months or more in an eGFR <60 mL/min/ 1.73 m2 defines CKD. Patients with eGFR values >/=60 mL/min/1.73 m2 may also have CKD if evidence of persistent proteinuria is present. The original MDRD equation for estimated GFR is not valid for patients less than 18 years of age. Additional information may be found at www.kdoqi.org. 28 FIRST MORNING SPECIMENS GENERALLY CONTAIN THE HIGHEST CONCENTRATION OF HCG AND ARE RECOMMENDED FOR EARLY DETECTION OF . 29 today, letter/call , has us 30 today, letter/call , has us 31 NORMAL THROAT ABHIJEET [id number] [place] [address], [address] Fax [place] [id number] CYTOLOGY REPORT Name: Jenni Lux : 1990 (Age: 17) Sex: F Location: [facility] Soc. Sec. #: [phone] Date Collected: 04/17/2008 Billing #: [id number] Date Received: 04/18/2008 Requisition # [id number] Physician(s): BRISEIDA MORENO Source of Specimen: ENDOCERVICAL/ECTOCERVICAL THIN PREP Clinical Information: Date of Last Menstrual Period: 04/21/08 Menstrual History:Regular Specimen Adequacy: SATISFACTORY FOR EVALUATION. ADEQUATE ENDOCERVICAL/TRANSFORMATION ZONE. General Categorization: NEGATIVE FOR INTRAEPITHELIAL LESION OR MALIGNANCY. kfs Electronic Signature JULIANE Sue (ASCP) Reported: 04/23/2008 Cytology Outreach [facility] ICD-9 Code(s) V72.31 33 Special Testing [id number] [facility], [address] [place] [address] GC / CHLAMYDIA REPORT Name: Jenni Lux : 1990 (Age: 17) Sex: F Location: [facility] Soc. Sec. #: [id number] Date Collected: 04/17/2008 Billing #: [id number] Date Received: 04/18/2008 Requisition # [id number] Physician(s): BRISEIDA MORENO Source of Specimen: ThinPrep Results: Neisseria gonorrhoeaeNEGATIVE Chlamydia trachomatisNEGATIVE Comment: This analysis was performed using second generation nucleic acid amplification testing (NAAT). Reported: 04/22/2008 Electronic Signature [facility] Nicolasa Cordoba [facility] Outreach Technical Laboratory [facility] ICD-9 Codes: A: V72.31 34 Organism 1 ! BETA HEMOLYTIC STREP NON A QUANTITY ! FEW 35 Organism 1 ! BETA HEMOLYTIC STREP NON A QUANTITY ! MANY 36 Cytology [id number] [facility], [address] [place] [address] CYTOLOGY REPORT Name: Jenni Lux : 1990 (Age: 16) Sex: F Location: [facility] Soc. Sec. #: [id number] Date Collected: 04/13/2007 Billing #: [id number] Date Received: 04/16/2007 Physician(s): BRISEIDA MORENO Source of Specimen: ENDOCERVICAL/ECTOCERVICAL THIN PREP Clinical Information: Date of Last Menstrual Period: 03/24/07 Menstrual History:Regular Specimen Adequacy: SATISFACTORY FOR EVALUATION. NO ENDOCERVICAL/TRANSFORMATION ZONE. General Categorization: NEGATIVE FOR INTRAEPITHELIAL LESION OR MALIGNANCY. tfn Electronic Signature JULIANE Yin (ASCP) Reported: 04/18/2007 Cytology [facility]reach [facility] ICD-9 Code(s) V72.31 37 Special Testing [id number] [facility], [address] [place] [address] GC / CHLAMYDIA REPORT Name: Jenni Lux : 1980 (Age: 26) Sex: F Location: [facility] Soc. Sec. #: [id number] Date Collected: 04/13/2007 Billing #: [id number] Date Received: 04/16/2007 Requisition # [id number] Physician(s): BRISEIDA MORENO Source of Specimen: ThinPrep Results: Neisseria gonorrhoeaeNEGATIVE Chlamydia trachomatisNEGATIVE Comment: This analysis was performed using second generation nucleic acid amplification testing (NAAT). Reported: 04/17/2007 Electronic Signature mxm Nicolasa Cordoba [place] ICD-9 Codes: A: V72.31 38 NORMAL THROAT ABHIJEET 39 01/18 recieved prelim with nonbetahemolytic strep, will hold another day await full culture 40 Organism 1 ! BETA HEMOLYTIC STREP NON A QUANTITY ! MANY Procedures Date CPT Code Description Status 12/18/2014 10937 Omt 3-4 Body Regions Completed 06/10/2013 74339 Visual Screening Test Completed 05/17/2012 06386 Measure Blood Oxygen Level Single Determination Completed 05/16/2011 55695 Visual Screening Test Completed 02/17/2006 01086 Screening Hearing Test Completed Encounters Type Date Location Provider CPT E/M Dx Office Visit 12/08/2016 9:30a [place] [address] L70.0 M79.7 Office Visit 11/07/2016 1:45p [place] [address] K08.89 Office Visit 11/03/2016 8:15a [facility] [address] M79.7 Office Visit 10/27/2016 8:00a [place] [address] L70.0 K08.89 Office Visit 09/15/2016 8:15a [place] [address] L70.0 Office Visit 08/04/2016 2:00p [place] [address] I83.813 Office Visit 07/26/2016 8:15a [facility] [address] L20.9 Office Visit 05/13/2016 10:15a [facility] [place] [address] H92.01 Office Visit 03/25/2015 11:00a [facility] [place] [address] H60.92 Office Visit 01/29/2015 1:00p [facility] [place] [address] M79.7 Office Visit 01/12/2015 1:00p [facility] [place] [address] M79.7 Office Visit 12/23/2014 8:30a [facility] [place] [address] M54.89 M60.89 Office Visit 12/18/2014 4:15p [facility] [place] [address] M54.6 M99.02 Office Visit 11/20/2014 8:30a [facility] [address] 724.5 382.00 477.9 Office Visit 11/03/2014 3:00p [facility] [place] [address] 648.44 724.5 Office Visit 10/13/2014 2:00p [facility] [place] [address] 648.44 729.1 Office Visit 09/17/2014 11:00a [facility] [place] [address] 648.44 Plan of Care Future Appointment(s):03/09/2017 9:30 am - Kellie Sanchez PA at [facility]2016 - Kellie Sanchez PAM79.7 FibromyalgiaComments:Advised pt to meet with Dr. Alejandro next week and discuss her symptoms with him - advised he may have something else in mind for herIf no other suggestion from Dr. Alejandro next week , pt would like referral to pain mangement in [facility] accupuncture to help with painFollow up:PRnAllReferral:Braden Robins MD,
== END 2017-02-11 20:56 | disposition home or self-care (01) ==
LOC: UCCORT 19:38
DX: K03.81 Cracked tooth (principal); Z90.49 Acquired absence of other specified parts of digestive tract
CPT/HCPCS: 99212; A9270-GY; G0463

== ENCOUNTER 2017-03-10 07:55 | Emergency (ER) | payer BC ==
[2017-03-10 08:09] VITALS: BP 132/82
--- NOTE | 2017-03-10 08:34 | UC ---
Ear Complaint HPI - HPI Summary HPI Summary: Pt presents with report of discomfort b/l ears. Pt states had celar drainage from left ear yesterday. Has taken Motrin with relief No fevers, chills. + sinus congestion and PND. Pt also with ongoing achiness right lower tooth - schedule to see dentist next week. No rash. No sob, cp, or cough. Pt's medications reviewed this visit - History of Current Complaint Chief Complaint: UCEar Stated Complaint: BILATERAL EAR PAIN Time Seen by Provider: 03/10/17 08:05 Hx Obtained From: Patient Hx Last Menstrual Period: 02/08/17 ?: No - 02/08/17 Onset/Duration: Gradual Onset Severity Initially: Mild Severity Currently: Moderate Aggravating Factors: Nothing Alleviating Factors: OTC Meds Associated Signs/Symptoms: Positive: Discharge - Allergies/Home Medications Allergies/Adverse Reactions: Allergies Allergy/AdvReac Type Severity Reaction Status Date / Time No Known Allergies Allergy Verified 03/10/17 08:09 PMH/Surg Hx/FS Hx/Imm Hx Previously Healthy: Yes - Surgical History Surgical History: Yes Surgery Procedure, Year, and Place: Gallbladder 2011 - Family History Known Family History: Negative: Cardiac Disease, Hypertension, Diabetes, Respiratory Disease - Social History Occupation: Works From/At Home Lives: With Family Alcohol Use: Rare Substance Use Type: None Smoking Status (MU): Never Smoked Tobacco - Immunization History Most Recent Influenza Vaccination: no Review of Systems Constitutional: Negative ENT: Dental Pain, Ear Ache, Nasal Discharge, Sinus Congestion Respiratory: Negative All Other Systems Reviewed And Are Negative: Yes Physical Exam Triage Information Reviewed: Yes Appearance: Well-Appearing, No Pain Distress, Well-Nourished Vital Signs: Initial Vital Signs Temp 98 F 03/10/17 08:03 Pulse 95 03/10/17 08:03 Resp 14 03/10/17 08:03 BP 132/82 03/10/17 08:03 Pulse Ox 98 03/10/17 08:03 Vital Signs Reviewed: Yes Eye Exam: Normal Eyes: Positive: Conjunctiva Clear ENT: Positive: Other - Right TM +fluid, + erythema left TM + fluid no drainage in canal TM intact b/l turbinates inflammed + PND no erythema, exudate Pt with broken with cavity #28 no drainage, no fluctuance no bleeding at gumline no submandicular LA. Negative: Pharynx normal Dental Exam: Normal Neck exam: Normal Neck: Positive: Supple, Nontender Respiratory Exam: Normal Respiratory: Positive: Chest non-tender, Lungs clear, Normal breath sounds, No respiratory distress, No accessory muscle use Cardiovascular Exam: Normal Cardiovascular: Positive: RRR, No Murmur, Pulses Normal Abdominal Exam: Normal Abdomen Description: Positive: Nontender, No Organomegaly Bowel Sounds: Positive: Present Musculoskeletal Exam: Normal Neurological Exam: Normal Neurological: Positive: Alert Psychological Exam: Normal Skin Exam: Normal Ear Complaint Course/Dx - Course Course Of Treatment: Pt with ear pain and dental pain. Pt with fluid b.l ear L> R. + PND. + broken tooth with pain. Rx amox, flonase. pt requesting diflucan for abx related yeast. secretion precaution - Differential Dx/Diagnosis Provider Diagnoses: otitis media. dental pain Discharge - Discharge Plan Condition: Stable Disposition: HOME Prescriptions: Amoxicillin PO (*) [Amoxicillin 875 MG (*)] 875 mg PO BID #14 tab Fluconazole [Diflucan 150 MG (NF)] 150 mg PO ONCE PRN #1 tab PRN Reason: yeast infection Fluticasone NASAL SPRAY 50MCG* [Flonase NASAL SPRAY 50MCG*] 2 spray BOTH NARES DAILY #1 btl Patient Education Materials: Otitis Media (ED), Toothache (ED) Referrals: Kellie Sanchez PA [Primary Care Provider] - Additional Instructions: - stay well hydrated. Drink plenty of non-alcoholic, non-caffinated beverages - Okay to alternate ibuprofen (Advil, Motrin) and Tylenol every 3hours for pain. Take with food. do NOT take for more than 4-5 days - Take antibiotics as prescribed until gone - use nasal spray as prescribed - - After you have been on antibiotics for 2 days - change your toothbrush and your pillowcase. These infections are spread by secretions - do NOT share eating or drinking utensils - clean items you share with other people such as cell phones, computer mouse, TV remote, computer tablets, etc - Contact your doctor or return with questions or concerns. Keep your appointment with your dentist as scheduled - you have been given a prescription for diflucan - okay to take as needed for antibiotic related yeast infection
== END 2017-03-10 08:40 | disposition home or self-care (01) ==
LOC: UCCORT 07:55
DX: H66.93 Otitis media, unspecified, bilateral (principal); K08.89 Other specified disorders of teeth and supporting structures
CPT/HCPCS: 99212; G0463

== ENCOUNTER 2017-03-20 08:18 | Emergency (ER) | payer BC ==
--- NOTE | 2017-03-20 08:33 | UC ---
Knee Pain HPI - HPI Summary HPI Summary: 26 year old female presents with left knee pain with no trauma. - History of Current Complaint Stated Complaint: LFT KNEE COMPLAINT Time Seen by Provider: 03/20/17 08:33 Hx Obtained From: Patient Hx Last Menstrual Period: 02/08/17 Onset/Duration: Sudden Onset Severity Initially: Moderate Severity Currently: Moderate Pain Scale Used: 0-10 Numeric - 7 Character: Sharp Aggravating Factor(s): Movement - Allergies/Home Medications Allergies/Adverse Reactions: Allergies Allergy/AdvReac Type Severity Reaction Status Date / Time No Known Allergies Allergy Verified 03/20/17 08:54 Home Medications: Home Medications Aloe Vera 25 mg PO DAILY 03/20/17 [History Confirmed 03/20/17] Multiple Vitamin [Multi Vitamin] 1 tab PO DAILY 03/20/17 [History Confirmed 10/28] PMH/Surg Hx/FS Hx/Imm Hx Previously Healthy: Yes - Surgical History Surgical History: Yes Surgery Procedure, Year, and Place: 2011 - Family History Known Family History: Negative: Cardiac Disease, Hypertension, Diabetes, Respiratory Disease - Social History Alcohol Use: Rare Substance Use Type: None Smoking Status (MU): Never Smoked Tobacco - Immunization History Most Recent Influenza Vaccination: no Review of Systems Constitutional: Negative Skin: Negative Eyes: Negative ENT: Negative Respiratory: Negative Cardiovascular: Negative Gastrointestinal: Negative Genitourinary: Negative Motor: Negative Neurovascular: Negative Musculoskeletal: Other: - left knee pain/swelling Neurological: Negative Psychological: Negative All Other Systems Reviewed And Are Negative: Yes Physical Exam Triage Information Reviewed: Yes Vital Signs Reviewed: Yes Eye Exam: Normal ENT Exam: Normal Dental Exam: Normal Neck exam: Normal Neck: Positive: 1 Respiratory Exam: Normal Cardiovascular Exam: Normal Abdominal Exam: Normal Musculoskeletal: Positive: Other: - left medial knee swelling/pain Neurological Exam: Normal Psychological Exam: Normal Skin Exam: Normal Knee Pain Course/Dx - Differential Dx/Diagnosis Provider Diagnoses: left pes anserine bursitis Discharge - Discharge Plan Condition: Stable Disposition: HOME Prescriptions: Diclofenac 1% GEL (NF) [Voltaren 1% GEL (NF)] 1 gm TOPICAL BID PRN #1 tube PRN Reason: Pain Ibuprofen TAB* [Motrin TAB* 800 MG] 800 mg PO Q6H #30 tab Patient Education Materials: Tendinitis (ED) Referrals: Remy Boyle MD [Medical Doctor] - Kevin Barrera [Physical Therapist] - Non Staff,Doctor [Primary Care Provider] -
[2017-03-20 08:54] VITALS: BP 134/89
--- NOTE | 2017-03-20 09:31 | RAD ---
Indication: Left knee pain. 4 views left knee demonstrates no fracture. No other bone or joint abnormality is noted. No joint effusion is noted. IMPRESSION: NO FRACTURE OF THE LEFT KNEE IS NOTED.
== END 2017-03-20 09:49 | disposition home or self-care (01) ==
LOC: UCCORT 08:18
DX: M70.52 Other bursitis of knee, left knee (principal); Y93.9 Activity, unspecified; Z90.49 Acquired absence of other specified parts of digestive tract
CPT/HCPCS: 99213; G0463

== ENCOUNTER 2017-07-08 14:56 | Emergency (ER) | payer BC ==
[2017-07-08 16:06] VITALS: BP 144/92
[2017-07-08] MEDS ORDERED: HYDROcodone/ACETAMIN 5-325 MG* 1 TAB PO ONE (17:03)
--- NOTE | 2017-07-08 17:28 | UC ---
Breast Complaint - HPI Summary HPI Summary: c/o right breast pain for 3 days, started as a tugging pain worse when she would bend over alleviated with recumbency. This morning she had a very sharp pain that lasted some seconds but was very intense. She denies , breast manipulation, nipple discharge, trauma, exercise, fever, axillary LNE or pain. She states the skin on her right breast feels sensitive but she feels it comes from a deeper layer. She also has been taking amoxil for ear infection for past 5 days and has been taking OCD tylenol/ibuprofen without alleviation of pain - Allergy/Home Medications Allergies/Adverse Reactions: Allergies Allergy/AdvReac Type Severity Reaction Status Date / Time No Known Allergies Allergy Verified 07/08/17 16:02 Home Medications: Home Medications Amoxicillin PO (*) [Amoxicillin 500 MG CAP*] 500 mg PO BID 07/08/17 [History Confirmed 07/08/17] Ibuprofen TAB* [Motrin TAB* 800 MG] 600 mg PO Q6H 07/08/17 [History Confirmed ] PMH/Surg Hx/FS Hx/Imm Hx Previously Healthy: Yes Other Neurological History: fibromyalgia - Surgical History Surgical History: Yes Surgery Procedure, Year, and Place: 2011 - Family History Known Family History: Negative: Cardiac Disease, Hypertension, Diabetes, Respiratory Disease - Social History Alcohol Use: Rare Substance Use Type: None Smoking Status (MU): Never Smoked Tobacco - Immunization History Most Recent Influenza Vaccination: no Review of Systems All Other Systems Reviewed And Are Negative: Yes Physical Exam Triage Information Reviewed: Yes Appearance: Pain Distress, Obese Vital Signs: Initial Vital Signs Temp 99.5 F 07/08/17 15:58 Pulse 78 07/08/17 15:58 Resp 18 07/08/17 15:58 BP 144/92 07/08/17 15:58 Pulse Ox 100 07/08/17 15:58 Vital Signs Reviewed: Yes Eye Exam: Normal Eyes: Positive: Conjunctiva Clear ENT: Positive: Hearing grossly normal, Pharynx normal, Uvula midline Neck: Positive: Supple, Nontender, No Lymphadenopathy Respiratory: Positive: Chest non-tender, Lungs clear, Normal breath sounds, No respiratory distress Cardiovascular: Positive: RRR, No Murmur, Pulses Normal, Brisk Capillary Refill Abdomen Description: Positive: Nontender, No Organomegaly, Soft Bowel Sounds: Positive: Present Musculoskeletal Exam: Other - breast exam: left breast larger than right. No erythema, no changes in skin texture or skin retractions. No nipple discharge, no masses palpable. No axillary lymph node enlargement. Breast Pain Course/Dx - Course Course Of Treatment: etiology of right breast pain is not clear. Patient has been taking amoxil for an ear infection, currently on day 5 and has been alternating between tylenol and ibuprofen, which do not alleviate pain. Will start patient on [place] as needed and follow up with primary care physician for imaging and pain control. - Diagnoses Provider Diagnoses: Mastodynia of right breast Discharge - Sign-Out/Discharge Documenting (check all that apply): Discharge/Admit/Transfer - Discharge Plan Condition: Stable Disposition: HOME Prescriptions: Hydrocodone/Acetaminophen [Hydrocodone/Acetaminophen 5-325 mg] 1 tab PO Q6HR PRN #5 tab MDD 4 PRN Reason: pain Patient Education Materials: Hydrocodone/Acetaminophen (By mouth) Referrals: Kellie Sanchez PA [Primary Care Provider] - - Billing Disposition and Condition Condition: STABLE Disposition: HOME
== END 2017-07-08 17:26 | disposition home or self-care (01) ==
LOC: UCCORT 14:56
DX: N64.4 Mastodynia (principal)
CPT/HCPCS: 99212; G0463

== ENCOUNTER 2017-08-16 14:49 | Emergency (ER) | payer BC ==
--- OUTSIDE RECORDS SUMMARY | 2017-08-16 15:16 | XMS REPORT ---
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 Use Currently consumes alcohol Recreational Drug Use Denies Drug Use Smoking Patient has never smoked Allergies, Adverse Reactions, Alerts Date Description Reaction Status Severity Comments 09/17/2014 NKDA active Medications Medication Date Status Form Strength Qnty SIG Indications Ordering Provider Diclofenac Sodium 08/01 Active Tablets 50mg 30tab 1 tablet by Callum, DR denny garza three Herbert, times daily DO Clindamycin 02/13 Active Gel 1-5% 25gm 1 pea size L70.0 Nolen, Phos-Benzoyl /2016 application Herbert, Perox to affected DO area once daily Betamethasone 07/26 Active Ointment 0.05% 90gm 1 L20.9 Callum Dipropionate application Herbert, to hands and DO behind ears twice daily Multivitamins 09/17 Active Capsules OTC 1 by mouth Callum, every day Herbert, DO Amoxicillin 00 Active Capsules 500mg 1 by mouth Unknown /0000 twice a day Hydrocodone-Aceta 07/10 Hx Tablets 7.5-325mg 28tab 1 tablet by N64.4 Callum, minophen /2017 s mouth every Herbert, - 6 hours as DO 07/31 needed for pain Fluoxetine HCL 05/29 Hx Capsules 20mg 30cap 1 by mouth M79.7 Callum, s every day Herbert, - DO 07/10 Nortriptyline HCL 05/29 Hx Capsules 10mg 30cap 1 tablet by M79.7 Callum, s mouth at [facility], - night DO 07/10 Elidel 04/24 Hx Cream 1% 100gm Apply thin Callum layer to Herbert, - hands twice DO 05/29 daily Prednisone 04/21 Hx Tablets 10mg 30tab 4 tablets by L20.9 Callum, s mouth x 3 Herbert, - days, then 3 DO 04/30 tablets x 3 days, then 2 tablets x 3 days, then 1 tablet until finished Eucrisa 04/21 Hx Ointment 2% 60gm 1 thin L20.9 Callum application Herbert, - to hands and DO 05/29 behind ears twice daily Amitriptyline HCL 02/10 Hx Tablets 25mg 30tab 1 tablet by Callum, s mouth at [facility], - bedtime DO 04/21 Nucynta 12/14 Hx Tablets 50mg 28tab 1 by mouth Callum s twice a day Herbert, - DO 02/01 Levonorgestrel/Et 12/08 Hx Tablets 0.1-20mg- 28tab 1 tablet by Callum hinyl Estradiol /2016 mcg s mouth daily Herbert, - DO 02/01 Acetaminophen-Cod 11/07 Hx Tablets 300-30mg 60tab 1 tablet by K08.89 lenard Nolen #3 /2016 s mouth every Herbert, - 4 hours as DO 11/26 needed- not fill until 11/17/16 Clindamycin/Benzo 10/27 Hx Gel 1-5% 25gm 1 pea size L70.0 Daniel, yl Peroxide application Kellie, - to affected PA 02/13 area once /2016 daily Amoxicillin/Clavu 10/27 Hx Tablets 875-125 20tab 1 by mouth Daniel, lanate Potassium /2016 s twice a day Kellie, - x 10 days PA 11/06 Levonorgestrel/Et 09/27 Hx Tablets 0.1-20mg- 28tab 1 tablet by Daniel , hinyl Estradiol /2016 mcg s mouth daily Kellie, - PA 10/31 Minocycline HCL 09/15 Hx Capsules 100mg 90cap 1 capsule L70.0 Daniel, /2016 s twice daily Kellie, - PA 09/27 Augmentin 05/13 Hx Tablets 500-125mg 20tab 1 by mouth H92.01 Stephanie, s twice a day Sukh, - DO 07/26 Ofloxacin (Otic) 03/25 Hx Solution 0.3% 10ml apply 3 H60.92 , drops three Herbert, - times a day DO 03/25 to LEFT ear /2015 x 1 week Ciprofloxacin HCL 03/25 Hx Solution 0.2% 14uni 2 drops in H60.92 ts LEFT ear Herbert, - three times DO 05/13 a day x week Lyrica 01/29 Hx Capsules 75mg 60cap 1 po daily x M79.7 Nolen, s 3 days, then Herbert, - 1 po bid DO 03/25 Duloxetine HCL 01/[address] 20mg 30cap 1 by mouth M79.7 Nolen, Part s every day Herbert, - *Rx is early DO 03/25 because attempted to increase to bid Trazodone HCL 01/12 Hx Tablets 50mg 60tab 1-2 by mouth M79.7 Nolen, s every night Herbert, - at bedtime DO 03/25 Prednisone 12/29 Hx Tablets 10mg 42tab 6 pills M60.89 Nolen, s daily x 2 Herbert, - days, the 5 DO 01/08 pills daily /2014 x 2 day, 4 po daily x 2 day, 3 po daily x 2 day, 2 po daily x2, 1 po daily x 2 day Prednisone 12/23 Hx Tablets 10mg 21tab 6 pills M60.89 Nolen, s daily x 1 Herbert, - day, the 5 DO 12/29 pills daily x 1 day, 4 po daily x 1 day, 3 po daily x 1 day, 2 po daily x1, 1 po daily x 1 day Tizanidine HCL 12/18 Hx Tablets 4mg 30tab 1 by mouth M54.6 Nolen, s every night Herbert, - at bedtime DO 01/19 Acetaminophen-Cod 11/21 Hx Tablets 300-30mg 30tab 1-2 by mouth mirta Nolenne #3 s every 8 Herbert, - hours as DO 01/19 needed pain Levocetirizine 11/20 Hx Tablets 5mg 30tab 1 by mouth 477.9 Nolen, Dihydrochloride /2014 s every day Herbert, - DO 12/18 Meloxicam 11/20 Hx Tablets 15mg 30tab 1 by mouth 724.5 Nolen, s every day Herbert, - DO 12/18 Duloxetine HCL 10/[address] 20mg 30cap 1 by mouth 648.44 Nolen, Part s every day Herbert, - DO 12/18 Venlafaxine HCL 09/17 Hx Caps ER 37.5mg 30cap 1 by mouth 648.44 Callum, ER /2014 24HR s every day Herbert, - DO 10/13 Ashlyna 0000 Hx Tablets 0.15-0.03 1 by mouth Ismael, / &0.01 every day Jackeline - mg 11/20 Meloxicam 00 Hx Tablets 7.5mg 1 by mouth Unknown /0000 every day - 03/25 Naproxen Sodium 00 Hx Tablets 550mg 1 by mouth Unknown /0000 twice a day - with food 07/26 Nucynta Hx Tablets 50mg 60tab One tablet Callum, /0000 s by mouth Herbert, - twice daily DO 12/08 Gabapentin 00 Hx Capsules 300mg 1 by mouth Unknown /0000 bid - 10/11 Nucynta ER 00 Hx Tablets 100mg 1 by mouth Unknown /0000 ER 12HR twice a day - 12/14 Immunizations CPT Code Status Date Vaccine Lot # [id number] Given 02/20/2012 Tdap (Adacel) Ages 7 And Above Only [id number] Given 11/07/2000 Hepatitis B Vac Ped/Adolescent 3 Dose Schedule Vital Signs Date Vital Result Comment 08/08/2017 Weight 197.00 lb Heart Rate 72 /min BP Systolic 160 mmHg BP Diastolic 106 mmHg Respiratory Rate 18 /min Height 65.75 inches 5'5.75" BMI (Body Mass Index) 32.0 kg/m2 07/10/2017 Body Temperature 98.7 F Weight 198.00 lb Heart Rate 76 /min BP Systolic 142 mmHg BP Diastolic 90 mmHg Respiratory Rate 18 /min Height 65.75 inches 5'5.75" BMI (Body Mass Index) 32.2 kg/m2 05/29/2017 Weight 201.00 lb Heart Rate 74 /min BP Systolic 130 mmHg BP Diastolic 80 mmHg Respiratory Rate 18 /min Height 65.75 inches 5'5.75" BMI (Body Mass Index) 32.7 kg/m2 04/21/2017 Weight 198.00 lb Heart Rate 74 /min BP Systolic 120 mmHg BP Diastolic 80 mmHg Respiratory Rate 18 /min Height 65.75 inches 5'5.75" BMI (Body Mass Index) 32.2 kg/m2 02/01/2017 Weight 195.00 lb Heart Rate 72 [...] Result H/L Range Note Laboratory test finding 07/10/2017 Cortisol 10.4 g/dL 1 Laboratory test finding 07/10/2017 Prolactin 17.1 ng/ml 2 TSH 0.63 uIU/mL 0.35-4.94 FSH 4.5 mIU/ml 3 LH 3.8 mIU/ml 4 Comprehensive Met Panel-[facility] 07/10/2017 Sodium 142 mmol/L 135-146 5 Potassium 4.1 mmol/L 3.5-5.2 Chloride# 103 mmol/L 97-110 6 Carbon Dioxide 28 mmol/L 24-34 Glucose 85 mg/dL 70-105 BUN 12 mg/dL 6-26 Creatinine 0.7 mg/dL 0.5-1.4 Calcium 9.7 mg/dL 8.5-10.2 Total Protein 6.3 g/dL 6.0-8.0 Albumin 4.6 g/dL 3.6-4.9 Globulin 1.7 g/dL Low 2.0-3.5 A/G Ratio 2.7 Ratio High 1.0-2.2 Total Bilirubin 0.4 mg/dL 0.1-1.3 Alkaline Phosphatase 85 U/L 24-140 Alt 21 U/L 3-42 Ast 21 U/L 8-42 Allison Egfr >60 >60 7 Non Allison Egfr >60 >60 8 Anion Gap 11 mmol/L 5-15 9 Laboratory test finding 03/04/2017 Lipase 107 U/L 56-289 10 CK 52 U/L 26-192 10 Troponin-I < 0.015 ng/mL 10, 11 Ua RFX Micro & Culture II 03/04/2017 Urine Color YELLOW Yellow 10 Urine Clarity CLEAR Clear 10 Urine Glucose - Dipstick NEGATIVE mg/dL Negative 10 Urine Bilirubin - Dipstick NEGATIVE Negative 10 Urine Ketone NEGATIVE mg/dL Negative 10 Urine Specific [place] >=1.030 1.010-1.030 10 Urine Blood NEGATIVE Negative 10 Urine PH 5.5 Low 6.5-7.5 10 Urine Protein - Dipstick 30 mg/dL High Negative 10 Urine Urobilinogen - Dipstick 0.2 E.U./dL 0.2-1.0 10 Urine Nitrite - Dipstick NEGATIVE Negative 10 Urine Leuk Esterase NEGATIVE Negative 10 Source: URINE, CLEAN CAT <SEE 10, 12 NOTE> Comprehensive Metabolic Panel 03/04/2017 Glucose 95 mg/dL 74-106 10 BUN 10 mg/dL 7-18 10 Creatinine 0.6 mg/dL 0.6-1.3 10 Glom Filtration Rate, Estimate >60 mL/min >60 10 If >60 mL/min >60 10, 13 BUN/Creat 16.6 ratio 10 Sodium 142 mmol/L 136-145 10 Potassium 3.4 mmol/L Low 3.5-5.1 10 Chloride 111 mmol/L High 98-107 10 Carbon Dioxide 24 mmol/L 21-32 10 Anion Gap 7 mEq/L Low 8-16 10 Calcium 8.7 mg/dL 8.5-10.1 10 Total Protein 7.0 g/dL 6.4-8.2 10 Albumin 3.5 g/dL 3.4-5.0 10 Globulin 3.5 g/dL 1.9-4.3 10 Alb/Glob 1.0 ratio 10 Bilirubin,Total 0.3 mg/dL 0.2-1.0 10 Sgot/Ast 29 U/L 15-37 10 SGPT/Alt 35 U/L 12-78 10 Alkaline Phosphatase 89 U/L 45-117 10 CBS W/Automated Diff 03/04/2017 White Blood Count 7.6 K/uL 3.1-10.7 10 Red Blood Count 4.63 M/uL 3.90-5.40 10 Hemoglobin 13.9 gm/dL 11.6-15.8 10 Hematocrit 40.0 % 36.0-46.1 10 Mean Cell Volume 86.4 fl 80.9-99.0 10 Mean Corpuscular HGB 30.0 pg 25.9-32.7 10 Mean Corpuscular HGB Conc 34.8 g/dL High 30.8-34.3 10 Platelet Count 214 K/uL 155-360 10 Red Cell Distri Width SD 41.0 fl 3-47 10 Red Cell Distri Width %CV 13.4 % 11.7-14.4 10 Mean Platelet Volume 10.0 fL 8.9-12.4 10 Neut% 71.8 % 40.4-72.8 10 Lymph % 20.1 % 20.0-42.0 10 Pierce % 7.2 % 4.3-13.2 10 Eo% 0.5 % 0.0-6.6 10 Bas% 0.4 % 0.0-1.1 10 Neut# 5.45 K/uL 1.8-7.0 10 Lymph # 1.53 K/uL 1.0-4.0 10 Pierce # 0.55 K/uL 0.3-0.9 10 Eos # 0.04 K/uL 0.0-0.5 10 Baso # 0.03 K/uL 0.0-0.1 10 Laboratory test finding 03/03/2017 Lipase 148 U/L 56-289 14 HCG,Serum (Qualitative) NEGATIVE (Negative) 14, 15 Comprehensive Metabolic Panel 03/03/2017 Glucose 95 mg/dL 74-106 14 BUN 15 mg/dL 7-18 14 Creatinine 0.7 mg/dL 0.6-1.3 14 Glom Filtration Rate, Estimate >60 mL/min >60 14 If >60 mL/min >60 14, 16 BUN/Creat 21.4 ratio 14 Sodium 141 mmol/L 136-145 14 Potassium 4.6 mmol/L 3.5-5.1 14 Chloride 110 mmol/L High 98-107 14 Carbon Dioxide 22 mmol/L 21-32 14 Anion Gap 9 mEq/L 8-16 14 Calcium 9.2 mg/dL 8.5-10.1 14 Total Protein 7.8 g/dL 6.4-8.2 14 Albumin 3.9 g/dL 3.4-5.0 14 Globulin 3.9 g/dL 1.9-4.3 14 Alb/Glob 1.0 ratio 14 Bilirubin,Total 0.6 mg/dL 0.2-1.0 14 Sgot/Ast 35 U/L 15-37 14 SGPT/Alt 40 U/L 12-78 14 Alkaline Phosphatase 104 U/L 45-117 14 Slide Review 03/03/2017 Slide Review (SEE NOTE) 14, 17 CBS W/Automated Diff 03/03/2017 White Blood Count 17.4 K/uL High 3.1-10.7 14 Red Blood Count 5.33 M/uL 3.90-5.40 14 Hemoglobin 15.7 gm/dL 11.6-15.8 14 Hematocrit 45.6 % 36.0-46.1 14 Mean Cell Volume 85.6 fl 80.9-99.0 14 Mean Corpuscular HGB 29.5 pg 25.9-32.7 14 Mean Corpuscular HGB Conc 34.4 g/dL High 30.8-34.3 14 Platelet Count 269 K/uL 155-360 14 Red Cell Distri Width SD 41.1 fl 3-47 14 Red Cell Distri Width %CV 13.4 % 11.7-14.4 14 Mean Platelet Volume 9.7 fL 8.9-12.4 14 Neut% 87.7 % High 40.4-72.8 14 Lymph % 7.7 % Low 20.0-42.0 14 Pierce % 4.0 % Low 4.3-13.2 14 Eo% 0.5 % 0.0-6.6 14 Bas% 0.1 % 0.0-1.1 14 Neut# 15.27 K/uL High 1.8-7.0 14 Lymph # 1.35 K/uL 1.0-4.0 14 Pierce # 0.69 K/uL 0.3-0.9 14 Eos # 0.09 K/uL 0.0-0.5 14 Baso # 0.02 K/uL 0.0-0.1 14 Lactic Acid 03/03/2017 Lactic Acid 1.4 mmol/L 0.4-1.9 14 Lab Reflex >2.0 for Sepsis? N 14 Laboratory test 03/03/2017 C-Reactive 10.0 mg/L High <3.0 14 finding Protein,Quant Laboratory test 03/03/2017 Sedimentation Rate 4 mm/hr 0-20 14, 18 finding Urine Culture 03/03/2017 Urine Culture URETHRAL ABHIJEET 14 Quantity 10,000 - 50,000 <SEE NOTE> 14, 19 Drugs Of Abuse-Urine Screen 7 03/03/2017 Amphetamines (Urine) Negative 14 Barbiturates (Urine) Negative 14 Benzodiazepines (Urine) Negative 14 Cannabinoids (Urine) Negative 14 Cocaine Metabolite (Urine) Negative 14 Methadone (Urine) Negative 14 Opiates (Urine) POSITIVE 14 Urine Cutoffs * 14, 20 Urinalysis With Microscopic 03/03/2017 Urine Color YELLOW Yellow 14 Urine Clarity SL CLOUDY Clear 14 Urine Glucose - Dipstick NEGATIVE mg/dL Negative 14 Urine Bilirubin - Dipstick NEGATIVE Negative 14 Urine Ketone NEGATIVE mg/dL Negative 14 Urine Specific [place] 1.020 1.010-1.030 14 Urine Blood NEGATIVE Negative 14 Urine PH 7.0 6.5-7.5 14 Urine Protein - Dipstick 30 mg/dL High Negative 14 Urine Urobilinogen - Dipstick 0.2 E.U./dL 0.2-1.0 14 Urine Nitrite - Dipstick NEGATIVE Negative 14 Urine Leuk Esterase SMALL Negative 14 Urine RBC 0-2 rbc/hpf 0-2 14 Urine WBC 5-10 wbc/hpf 0-7 14 Urine Epithelial Cells MANY /lpf None Seen 14, 21 Urine Bacteria FEW None Seen 14 Urine Mucus MODERATE None Seen 14 Source: URINE, CLEAN CAT <SEE 14, 22 NOTE> Laboratory test finding 12/23/2014 Scleroderma Igg AB NEGATIVE INDEX (Neg ) 23 Laboratory test finding 12/23/2014 Amy Screen Neg Neg CPK 46 U/L 12-199 CRP (C-Reactive) 1.95 mg/dL High 0.00-0.75 Esr 21 mm/hr High 0-20 Rheumatoid Factor <10.0 IU/mL 0.0-10.0 Laboratory test finding 10/13/2014 Esr 20 mm/hr 0-20 TSH 0.92 uIU/mL 0.35-4.94 CBC With Auto Diff 10/13/2014 WBC 10.2 [...] K/uL 0.0-0.5 Abs Basophils 0.1 K/uL 0.0-0.3 Laboratory test finding 10/13/2014 Lyme Igm/Igg AB NEGATIVE (Neg) 24 Comprehensive Metabolic (CMP) 10/13/2014 Sodium 140 mmol/L [...] 12 mmol/L 6-14 Allison Egfr >60 >60 25 Non Allison Egfr >60 >60 26 Laboratory test finding 07/12/2014 Hematocrit 29.3 36.0-46.1 [...] Laboratory test 10/23/2013 HCG, Quant 34.0 mIU/mL 27 finding Laboratory test 08/01/2013 Dhea Sulfate 285.8 g/dL 110.0-43 finding 1.7 Prolactin 13.9 ng/mL 3.24-29.12 Testosterone,Free/Weakly 08/01/2013 Testosterone,%Free/Weakly 9.9 % 3.0- 18.0 Bound BND Testosterone,Free+Weakly Bound 3.0 ng/dL 0.0-9.5 28 Testosterone,Serum 30 ng/dL 8-48 Laboratory test finding 07/24/2013 % Baso. 0.8 % 0.0-2.0 % Eos. 1.3 % 0.0-4.0 % Lymph 29 % 20-44 % Pierce 5.3 % 2.0-10.0 % Mark 64 % 50-70 A/G Ratio 1.6 ratio Low 1.6-2.2 Absolute Baso. 0.1 K/ul 0.0-0.3 Absolute Eos. 0.1 K/ul 0.0-0.5 Absolute Lymph. 3.0 K/ul 0.8-4.8 Absolute Pierce. 0.5 K/ul 0.1-1.0 Absolute Mark. 6.51 K/ul 2.05-7.63 Albumin 4.2 g/dL 3.5-5.0 Alk. Phos. 70.0 U/L 30.0-126.0 Alt 17.0 U/L 9.0-52.0 Anion Gap 10.0 mmol/L 10.0-20.0 Antigliadin Abs, IgA 1 units 0-19 29 Antigliadin Abs, IgG 2 units 0-19 30 Ast 22.0 U/L 14.0-36.0 BUN 14.0 mg/dL [...] Thyroid Antithyroglobulin AB < 1.0 Iu/ml 0.0-0.9 31 Thyroid Peroxidase Antibodies 12 IU/mL 0-34 32 Total Bilirubin 0.3 mg/dL 0.2-1.3 Total Protein 6.9 g/dL 6.3-8.2 WBC 10.3 K/ul 4.1-10.9 eGFR 93.3 mi/minper1.73 33 t-Transglutaminase IgA <2 U/mL 0-3 34 t-Transglutaminase IgG <2 U/mL 0-5 35 Sjogren's Antibodies 07/24/2013 Sjogrens Antibodies (SSB) <0.2 0.0- 0.9 Sjogrens Antibodies (Ssa) <0.2 0.0-0.9 Laboratory test finding 10/26/2012 Culture Urine See Note 36 Laboratory test finding 04/27/2012 Throat Culture Complete See Note 37 Laboratory test finding 12/17/2011 Urine Culture See Note 38 Laboratory test finding 11/07/2011 Absolute Basophils 0.068 K/ul 0.0-0.3 39 Absolute Eosinophils 0.051 K/ul 0.0-0.5 39 Absolute Lymphocytes 1.53 K/ul 0.8-4.8 39 Absolute Monocytes 0.424 K/ul 0.1-1.0 39 Absolute Neutrophils 4.79 K/ul 2.05-7.63 39 Anion Gap 11 mmol/L 10-20 39 BUN 12 mg/dL 7-18 39 BUN/CR Ratio 17.5 Ratio 12-20 39 Basophil 1.0 % 0-2 39 Calcium 9.6 mg/dL 8.7-10.5 39 Carbon Dioxide 27 mmol/L 22-30 39 Chloride 104 mmol/L 98-107 39 Creatinine, Serum 0.7 mg/dL 0.7-1.2 39 Eosinophil 0.7 % 0-4 39 Gamma Glutamyl Transpeptidase 31 U/L 8-35 39, 40 Glucose 94 mg/dL 65-105 39 Hematocrit 41.7 % 37.0-51.0 39 Hemoglobin 13.7 GM/dl 12.0-16.0 39 Lipase,Serum 96 U/L 28-380 39, 41 Lymphocytes 22.3 % 20-44 39 MCH 29.1 pg 26.0-32.0 39 MCHC 32.9 g/dL 31.0-36.0 39 MCV 88 FL 80-97 39 Monocytes 6.2 % 2-10.0 39 Neutrophils 69.8 % 50-70 39 Platelet Count 244 K/ul 140-440 39 Potassium 3.8 mmol/L 3.6-5.0 39 RBC 4.71 M/ul 4.2-6.3 39 RDW 12.1 % 11.5-14.5 39 Sodium 139 mmol/L 137-145 39 WBC 6.9 K/ul 4.1-10.9 39 Hepatic Function 11/07/2011 Albumin 4.2 g/dL 3.5-5.0 39 Alkaline Phosphatase 101 U/L 30-126 39 Alt 24 U/L 9-52 39 Ast 35 U/L 14-36 39 Total Bilirubin 1.0 mg/dL 0.2-1.3 39 Total Protein 7.3 g/dL 6.3-8.2 39 Laboratory test finding 06/25/2011 Throat Culture Complete See Note neg 42 Laboratory test finding 04/11/2011 Culture Urine See Note 43 Laboratory test finding 03/15/2011 Aerobic Culture See Note 44 Gram Stain See Note 45 Laboratory test finding 03/15/2011 Absolute Basophils 0.097 K/ul 0.0-0.3 46 Absolute Eosinophils 0.124 K/ul 0.0-0.5 46 Absolute Lymphocytes 2.23 K/ul 0.8-4.8 46 Absolute Monocytes 0.448 K/ul 0.1-1.0 46 Absolute Neutrophils 5.31 K/ul 2.05-7.63 46 Basophil 1.2 % 0-2 46 Eosinophil 1.5 % 0-4 46 Hematocrit 44.7 % 37.0-51.0 46 Hemoglobin 14.8 GM/dl 12.0-16.0 46 Lymphocytes 27.2 % 20-44 46 MCH 28.6 pg 26.0-32.0 46 MCHC 33.1 g/dL 31.0-36.0 46 MCV 86 FL 80-97 46 Monocytes 5.5 % 2-10.0 46 Neutrophils 64.7 % 50-70 46 Platelet Count 292 K/ul 140-440 46 RBC 5.17 M/ul 4.2-6.3 46 RDW 11.8 % 11.5-14.5 46 TSH 1.553 uIU/ml 0.50-6.00 46 Vitamin D,25-Hydroxy 24.3 ng/mL Low 30.0-100.0 46, 47 WBC 8.2 K/ul 4.1-10.9 46 Vitamin B12 And Folate 03/15/2011 Folic Acid 49.7 ng/mL High 6.0-15.4 46 Vitamin B12 547 pg/mL 311-1180 46 Laboratory test finding 02/18/2011 Gallbladder See Note 48 Laboratory test finding 02/15/2011 Alb/Glob 0.9 ratio [...] 14.6 gm/dL 11.6-15.8 If >60 mL/min >60 49 Mean Cell Volume 88.1 fl 80.9-99.0 Mean [...] g/dL 6.3-8.0 Urine HCG (Qualitative) Negative Negative 50 White Blood Count 8.3 K/uL 3.1-10.7 Urine [...] - Dipstick Negative mg/dL Negative Urine Specific [place] >=1.030 1.010-1.030 Urine Urobilinogen - Dipstick 0.2 E.U./dL 0.2-1.0 Laboratory test finding 01/11/2011 Absolute Basophils 0.080 K/ul 0.0-0.3 51 Absolute Eosinophils 0.095 K/ul 0.0-0.5 51 Absolute Lymphocytes 2.24 K/ul 0.8-4.8 51 Absolute Monocytes 0.598 K/ul 0.1-1.0 51 Absolute Neutrophils 4.28 K/ul 2.05-7.63 51 Anion Gap 15 mmol/L 10-20 51 BUN 10 mg/dL 7-18 51 BUN/CR Ratio 15.3 Ratio 12-20 51 Basophil 1.1 % 0-2 51 Calcium 10.2 mg/dL 8.7-10.5 51 Carbon Dioxide 27 mmol/L 22-30 51 Chloride 105 mmol/L 98-107 51 Creatinine, Serum 0.7 mg/dL 0.7-1.2 51 Eosinophil 1.3 % 0-4 51 Glucose 81 mg/dL 65-105 51 Hematocrit 45.6 % 37.0-51.0 51 Hemoglobin 14.3 GM/dl 12.0-16.0 51 Lymphocytes 30.7 % 20-44 51 MCH 27.0 pg 26.0-32.0 51 MCHC 31.5 g/dL 31.0-36.0 51 MCV 86 FL 80-97 51 Monocytes 8.2 % 2-10.0 51 Neutrophils 58.7 % 50-70 51 Platelet Count 259 K/ul 140-440 51 Potassium 4.6 mmol/L 3.6-5.0 51 RBC 5.31 M/ul 4.2-6.3 51 RDW 11.7 % 11.5-14.5 51 Sodium 142 mmol/L 137-145 51 WBC 7.3 K/ul 4.1-10.9 51 Hepatic Function 01/11/2011 Albumin 4.4 g/dL 3.5-5.0 51 Alkaline Phosphatase 85 U/L 30-126 51 Alt 31 U/L 9-52 51 Ast 35 U/L 14-36 51 Total Bilirubin 0.5 mg/dL 0.2-1.3 51 Total Protein 7.9 g/dL 6.3-8.2 51 Laboratory test finding 01/11/2011 Amylase 58 U/L 18-98 52 Laboratory test finding 05/15/2008 Culture Throat Normal Throat FL <See 53 Note> Laboratory test finding 04/17/2008 Cytology Pap See Note 54 GC / Chlamydia See Note 55 Laboratory test finding 03/17/2008 Culture Throat <see comment> 56 Laboratory test finding 03/17/2008 Rapid Strep Test negative Laboratory test finding 12/12/2007 Culture Throat <see comment> 57 Laboratory test finding 12/12/2007 Rapid Strep Test Negative Laboratory test finding 04/13/2007 Cytology Pap See Note 58 GC / Chlamydia See Note 59 Laboratory test 06/28/2006 Test, Urine neg finding Laboratory test 06/08/2006 Culture Throat Normal Throat FL 60 finding <See Note> Laboratory test 06/08/2006 Rapid Strep Test Negative finding Laboratory test 01/17/2006 Culture Throat <see comment> 61, 62 finding Laboratory test 01/17/2006 Rapid Strep Test negative finding 1 CORTISOL REFERENCE RANGE: 7-9AM 4.3 - 22.4 MCG/DL 4-6PM 3.1 - 16.7 MCG/DL LATE AFTERNOON LEVELS FALL TO APPROX. 1/2 AM VALUE. RESULTS REVIEWED Unless otherwise specified, testing performed by [facility] [address] [place] [id number] 2 Prolactin Female Normal Values: Pre-menopausal: 3.3-26.7 ng/mL Post-menopausal:2.7-19.6 ng/mL 3 FSH Female Normal Values: Mid-Follicular: 3.9-8.8 mIU/mL Mid-cycle Peak: 4.5-22.5 mIU/mL Mid-Luteal: 1.8-5.1 mIU/mL Post-menopausal:16.7-113.6 mIU/mL 4 Lutenizing Hormone Female Normal Values: Mid-Follicular: 2.1-10.9 mIU/mL Mid-cycle Peak: 19.2-103.0 mIU/mL Mid-Luteal: 1.2-12.9 mIU/mL Post-menopausal:10.9-58.6 mIU/mL 5 Updated reference range on new analyzer 6 Updated reference range on new analyzer 7 Concerning GFR Guidelines for Americans: Normal function or mild renal disease, if clinically at risk: >/=60 mL/min Moderately decreased: 30-59 Severely decreased: 15-29 Renal failure: <15 8 Concerning GFR Guidelines: Normal function or mild [...] drugs that are excreted by the kidneys. 9 Updated Reference Range -2017 10 STOMACH PAIN 11 0.0 - 0.045 ng/mL: Normal 0.046 - 0.5 ng/mL: Suggestive 0.6 - 1.5 ng/mL: Consistent 12 URINE, CLEAN CATCH 13 Note: Persistent reduction for 3 months or more in an eGFR <60 mL/min/1.73 m2 defines CKD. Patients with eGFR values >/=60 mL/min/1.73 m2 may also have CKD if evidence of persistent proteinuria is present. The original MDRD equation for estimated GFR is not valid for patients less than 18 years of age. Additional information may be found at [email or web address]. 14 STOMACH PAIN, N/V/D, PORTER 15 Method: Quidel QuickVue One-Step Immunoassay 16 Note: Persistent reduction for 3 months or more in an eGFR <60 mL/min/1.73 m2 defines CKD. Patients with eGFR values >/=60 mL/min/1.73 m2 may also have CKD if evidence of persistent proteinuria is present. The original MDRD equation for estimated GFR is not valid for patients less than 18 years of age. Additional information may be found at [email or web address]. 17 Instrument flagged sample for slide review. Less than 10% Bands seen, no other immature WBC's seen. RBC morphology essentially normal. Platelet estimate=NORMAL 18 Method: Sediplast Modified Westergren 19 10,000 - 50,000 CFU/mL 20 URINE SPECIMENS ARE SCREENED AT THE LISTED CUTOFFS DRUG CLASS INITIAL TEST LEVEL Amphetamines 1000 ng/mL Barbiturates 200 ng/mL Benzodiazepines 200 ng/mL Cannabinoids 50 ng/mL Cocaine Metabolite 300 ng/mL Methadone 300 ng/mL Opiates 300 ng/mL Any PRESUMPTIVE POSITIVE findings are UNCONFIRMED. Confirmatory testing is suggested if findings are unexpected. Please contact laboratory if confirmatory testing is desired. SPECIMENS ARE HELD FOR 72 HOURS. 21 POSSIBLE UROGENITAL CONTAMINATION. 22 URINE, CLEAN CATCH 23 Unless otherwise specified, testing performed by [facility] [place] [address] 24 A Negative serologic test for Lyme Disease indicates no serologic evidence of infection with B burgdorferi at the time this specimen was collected. A repeat specimen should be collected in 2 to 4 weeks if clinically indicated. Unless otherwise specified, testing performed by [facility] [address] [place] [id number] 25 Concerning GFR Guidelines for Americans: Normal function or mild renal disease, if clinically at risk: >/=60 mL/min Moderately decreased: 30-59 Severely decreased: 15-29 Renal failure: <15 26 Concerning GFR Guidelines: Normal function or mild [...] drugs that are excreted by the kidneys. 27 Approximate Gestational Age and Total BHCG Range: 0.2 - 1 Week........................5-50 mIU/mL 1 - 2 Weeks.....................50- 500 mIU/mL 2 - 3 Weeks..................100-5,000 mIU/mL 3 - 4 Weeks.................500-10,000 mIU/mL 4 - 5 Weeks...............1,000-50, 000 mIU/mL 5 - 6 Weeks.............10,000-100,000 mIU/mL 6 - 8 Weeks.............15,000-200,000 mIU/mL 2 - 3 Months............10,000-100, 000 mIU/mL 28 Performed at: [address] [id number] Detective Sergeant: Liz Dexter MD, Phone: [phone] Performed at: [address] [id number] Detective Sergeant: Terry Morrison MD, Phone: [phone] 29 Negative 0 - 19 Weak Positive 20 - 30 Moderate to Strong Positive >30 30 Negative 0 - 19 Weak Positive 20 - 30 Moderate to Strong Positive >30 31 Low positive Thyroglobulin antibodies are seen in a portion of the asymptomatic populations. Antithyroglobulin antibodies measured by [facility] [employer] 32 Performed at: [address] [id number] Detective Sergeant: Liz Dexter MD, Phone: [phone] 33 For -[place] patients multiply result by 1.180 34 Negative 0 - 3 Weak Positive 4 - 10 Positive >10 Tissue Transglutaminase (tTG) has been identified as the endomysial antigen. Studies have demonstr- ated that endomysial IgA antibodies have over 99% specificity for gluten sensitive enteropathy. 35 Negative 0 - 5 Weak Positive 6 - 9 Positive >9 36 COLONY COUNT ! 40,000-50,000 CFU/ml Organism 1 [...] S GENTAMICIN <=1 S TOBRAMYCIN <=1 S 37 Organism 1 ! BETA HEMOLYTIC STREP NON A QUANTITY ! MANY 38 COLONY COUNT ! >100,000 CFU/ml Organism 1 [...] S CEFOXITIN 8 S PIPERACILLIN <=4 S 39 today 40 today 41 today 42 NORMAL THROAT ABHIJEET 43 COLONY COUNT ! 10,000 - 20,000 CFU/ml Organism 1 ! URETHRAL ABHIJEET 44 Organism 1 ! STAPHYLOCOCCUS AUREUS QUANTITY ! [...] PIPERACILLIN R CEFTRIAXONE S VANCOMYCIN <=0.5 S 45 GRAM STAIN ! FEW GRAM POSITIVE COCCI 46 today ,letter, ov 1 m 47 Vitamin D deficiency has been defined by the [place] [employer] and an Endocrine Society practice guideline as a level of serum 25-OH vitamin D less than 20 ng/mL (1,2). The Endocrine Society went on to further define vitamin D insufficiency as a level between 21 and 29 ng/mL (2). 1. IOM ([place] [employer]). 2011. Dietary reference intakes for calcium and D. [place]: The National Academies Press. 2. Jessica MF, Nina NC, Debby PORTER, et al. Evaluation, treatment, and prevention of vitamin D deficiency: an Endocrine Society clinical practice guideline. JCEM. 2010; 96(7):1911-30. Performed at: RN - [facility] [address] [id number] Detective Sergeant: Isaac Liriano MD, Phone: [phone] OPERATION/PROCEDURE Cholecystectomy, laparoscopic DIAGNOSIS: "GALLBLADDER": CHRONIC CHOLECYSTITIS, CHOLESTEROLOSIS AND CHOLELITHIASIS. NO EVIDENCE OF ACUTE INFLAMMATION, DYSPLASIA NOR NEOPLASIA APPRECIATED. CORINNE/leroy 11: 59:28 AM GROSS The specimen is [...] tumor, necrosis nor purulent exudates are seen. Principal Developer sections are submitted in one block. WALT/marielf MICROSCOPIC Sections show gallbladder mucosa lined by columnar epithelium with focal synechia, and Rokitansky-Aschoff sinus formation. The submucosa has a mild infiltrate of lymphocytes and plasma cells. Foamy histiocytes are noted within the tips of papillae. The muscular wall is slightly fibrotic and hypertrophied. PRE OPERATIVE DIAGNOSIS Chronic cholecystitis, cholelithiasis REVIEW CODE CODE: I ----- TERRY Tay MD 02/21/11 1502 ----- 49 Note: Persistent reduction for 3 months or more in an eGFR <60 mL/min/ 1.73 m2 defines CKD. Patients with eGFR values >/=60 mL/min/1.73 m2 may also have CKD if evidence of persistent proteinuria is present. The original MDRD equation for estimated GFR is not valid for patients less than 18 years of age. Additional information may be found at www.kdoqi.org. 50 FIRST MORNING SPECIMENS GENERALLY CONTAIN THE HIGHEST CONCENTRATION OF HCG AND ARE RECOMMENDED FOR EARLY DETECTION OF . 51 today, letter/call , has us 52 today, letter/call , has us 53 NORMAL THROAT ABHIJEET 54 Cytology [id number] [facility], [address] [place] [address] CYTOLOGY REPORT Name: Jenni Lux : 1990 (Age: 17) Sex: F Location: [facility] Soc. Sec. #: [id number] Date Collected: 04/17/2008 Billing #: [id number] Date Received: 04/18/2008 Requisition # [id number] Physician(s): BRISEIDA MORENO Source of Specimen: ENDOCERVICAL/ECTOCERVICAL THIN PREP Clinical Information: Date of Last Menstrual Period: 04/21/08 Menstrual History:Regular Specimen Adequacy: SATISFACTORY FOR EVALUATION. ADEQUATE ENDOCERVICAL/TRANSFORMATION ZONE. General Categorization: NEGATIVE FOR INTRAEPITHELIAL LESION OR MALIGNANCY. kfs Electronic Signature JULIANE Sue (ASCP) Reported: 04/23/[address] [facility] ICD-9 Code(s) V72.31 55 Special Testing [id number] [place] [address], [address] [facility] [place] [facility] [place] [address] GC / CHLAMYDIA REPORT Name: Jenni Lux : 1990 (Age: 17) Sex: F Location: [facility] Soc. Sec. #: [id number] Date Collected: 04/17/2008 Billing #: [id number] Date Received: 04/18/2008 Requisition # [id number] Physician(s): BRISEIDA MORENO Source of Specimen: ThinPrep Results: Neisseria gonorrhoeaeNEGATIVE Chlamydia trachomatisNEGATIVE Comment: This analysis was performed using second generation nucleic acid amplification testing (NAAT). Reported: 04/22/2008 Electronic Signature [facility] Nicolasa Cordoba [facility] Outreach Technical Laboratory [facility] ICD-9 Codes: A: V72.31 56 Organism 1 ! BETA HEMOLYTIC STREP NON A QUANTITY ! FEW 57 Organism 1 ! BETA HEMOLYTIC STREP NON A QUANTITY ! MANY [id number] [place] [address], [address] [place] [address] CYTOLOGY REPORT Name: Jenni Lux : 1990 (Age: 16) Sex: F Location: [facility] Soc. Sec. #: [id number] Date Collected: 04/13/2007 Billing #: [id number] Date Received: 04/16/2007 Physician(s): BRISEIDA MORENO Source of Specimen: ENDOCERVICAL/ECTOCERVICAL THIN PREP Clinical Information: Date of Last Menstrual Period: 03/24/07 Menstrual History:Regular Specimen Adequacy: SATISFACTORY FOR EVALUATION. NO ENDOCERVICAL/TRANSFORMATION ZONE. General Categorization: NEGATIVE FOR INTRAEPITHELIAL LESION OR MALIGNANCY. tfn Electronic Signature JULIANE Yin (ASCP) Reported: 04/18/[address] [facility] ICD-9 Code(s) V72.31 59 Special Testing [id number] [place] [address], [address] [place] [address] GC / CHLAMYDIA REPORT Name: Jenni Lux : 1980 (Age: 26) Sex: F Location: [facility] Soc. Sec. #: [id number] Date Collected: 04/13/2007 Billing #: [id number] Date Received: 04/16/2007 Requisition # [id number] Physician(s): BRISEIDA MORENO Source of Specimen: ThinPrep Results: Neisseria gonorrhoeaeNEGATIVE Chlamydia trachomatisNEGATIVE Comment: This analysis was performed using second generation nucleic acid amplification testing (NAAT). Reported: 04/17/2007 Electronic Signature [facility] Nicolasa Cordoba [place] ICD-9 Codes: A: V72.31 60 NORMAL THROAT ABHIJEET 61 / recieved prelim with nonbetahemolytic strep, will hold another day await full culture 62 Organism 1 ! BETA HEMOLYTIC STREP NON A QUANTITY ! MANY Procedures Date CPT Code Description Status 12/18/2014 10186 Omt 3-4 Body Regions Completed 06/10/2013 96857 Visual Screening Test Completed 05/17/2012 84606 Measure Blood Oxygen Level Single Determination Completed 05/16/2011 96790 Visual Screening Test Completed 02/17/2006 55898 Screening Hearing Test Completed Encounters Type Date Location Provider CPT E/M Dx Office Visit 07/10/2017 1:00p [place] [address] N64.4 Z68.32 Office Visit 05/29/2017 9:00a [place] [address] M79.7 Office Visit 04/21/2017 8:30a [place] [address] L20.9 Office Visit 02/01/2017 8:30a [facility] [place] [address] M79.7 Office Visit 12/08/2016 9:30a [facility] [place] [address] L70.0 M79.7 Office Visit 11/07/2016 1:45p [facility] [place] [address] K08.89 Office Visit 11/03/2016 8:15a [facility] [place] [address] M79.7 Office Visit 10/27/2016 8:00a [facility] [place] [address] L70.0 K08.89 Office Visit 09/15/2016 8:15a [facility] [place] [address] L70.0 Office Visit 08/04/2016 2:00p [facility] [place] [address] I83.813 Office Visit 07/26/2016 8:15a [facility] [place] [address] L20.9 Office Visit 05/13/2016 10:15a [facility] [place] [address] H92.01 Office Visit 03/25/2015 11:00a [facility] [place] [address] H60.92 Office Visit 01/29/2015 1:00p [facility] [place] [address] M79.7 Office Visit 01/12/2015 1:00p [facility] [place] [address] M79.7 Office Visit 12/23/2014 8:30a [facility] [place] [address] M54.89 M60.89 Office Visit 12/18/2014 4:15p [facility] [place] [address] M54.6 M99.02 Office Visit 11/20/2014 8:30[place] [address] 724.5 382.00 477.9 Office Visit 11/03/2014 3:00p [place] [address] 648.44 724.5 Office Visit 10/13/2014 2:00p [place] [address] 648.44 729.1 Office Visit 09/17/2014 11:00a [facility] [place] [address] 648.44 Plan of Care 08/08/2017 - Kellie Sanchez PAR03.0 Elevated blood-pressure reading, w/o diagnosis of htnComments:Check BP readings outptIf persistently > 140/90, consider starting BP medicationCall/to ER with chest pain, palpitations, SOB, headache, dizziness, vision changes, numbness/tinglingFollow up:PrnZ68.32 Body mass index (BMI) 32.0-32.9, adult
--- NOTE | 2017-08-16 15:44 | UC ---
Headache HPI - HPI Summary HPI Summary: 27 yo female with the acute onset of holocranial PORTER that woke her up from a sound sleep PORTER constant 7/10 at onset 7/10 currently worse occasionally photophobia no n/v denies similar PORTER in past now with visual complaints the started today right eye central visual field appears distorted bilaterally temporal lynn seem shimmering no f/c no URI symptoms no neck pain no CP or SOB - History Of Current Complaint Chief Complaint: UCHeadache Stated Complaint: ELEVATED BLLOD PRESSURE/BLURRY VISION Time Seen by Provider: 08/16/17 15:26 Hx Obtained From: Patient Hx Last Menstrual Period: 07/19/17 Onset/Duration: Sudden Onset, Lasting Weeks Onset Of Symptoms: Sudden Initially Headache Was: "Worst Headache Ever", Initial Pain Scale(0-10)= - 7, Severe Currently Pain Is: Current Pain Scale(0-10)= - 7 Pain Intensity: 7 Pain Scale Used: 0-10 Numeric Timing: Constant Character: Dull, Throbbing Location of Headache: Diffuse Aggravating Factor(s): Bright Lights Allevating Factor(s): Nothing - no relief with OTC meds Associated Signs And Symptoms: Positive: Negative, Visual Changes - Allergies/Home Medications Allergies/Adverse Reactions: Allergies Allergy/AdvReac Type Severity Reaction Status Date / Time No Known Allergies Allergy Verified 08/16/17 15:04 Home Medications: Home Medications Diclofenac Sodium EC TAB* [Voltaren EC TAB*] 25 mg PO TID PRN 08/16/17 [History Confirmed 08/16/17] PMH/Surg Hx/FS Hx/Imm Hx Previously Healthy: Yes - Surgical History Surgical History: Yes Surgery Procedure, Year, and Place: Gallbladder 2011 - Family History Known Family History: Negative: Cardiac Disease, Hypertension, Diabetes, Respiratory Disease - Social History Alcohol Use: Rare Substance Use Type: None Smoking Status (MU): Never Smoked Tobacco - Immunization History Most Recent Influenza Vaccination: no Review of Systems Constitutional: Negative Skin: Negative Eyes: Blurred Vision, Photophobia ENT: Negative Respiratory: Negative Cardiovascular: Negative Gastrointestinal: Negative Genitourinary: Negative Motor: Negative Neurovascular: Negative Musculoskeletal: Negative Neurological: Headache Psychological: Negative Is Patient Immunocompromised?: No All Other Systems Reviewed And Are Negative: Yes Physical Exam Triage Information Reviewed: Yes Appearance: Well-Appearing, No Pain Distress, Well-Nourished Vital Signs: Initial Vital Signs Temp 99.9 F 08/16/17 15:01 Pulse 95 08/16/17 15:01 Resp 19 08/16/17 15:01 BP 166/100 08/16/17 15:01 Pulse Ox 100 08/16/17 15:01 Vital Signs Reviewed: Yes Eyes: Positive: Conjunctiva Clear, Other: - PERRL/fundi -benign ENT: Positive: Hearing grossly normal, TMs normal, Uvula midline. Negative: Nasal congestion, Nasal drainage, Tonsillar swelling, Tonsillar exudate, Trismus , Muffled voice, Hoarse voice, Sinus tenderness Neck: Positive: Supple, Nontender, No Lymphadenopathy Respiratory: Positive: Lungs clear, Normal breath sounds, No respiratory distress, No accessory muscle use Cardiovascular: Positive: RRR, No Murmur Musculoskeletal: Positive: Strength Intact, ROM Intact, No Edema Neurological: Positive: Alert, Muscle Tone Normal, Other: - GCS 15/15, strenght 5/5, CN 2-12 intact, DTRs equal bilaterally, normal gait Psychological Exam: Other - tearful/anxious Skin Exam: Normal Diagnostics - Radiology No standard instances Xray Interpretation: No Acute Changes - CT brain Radiology Interpretation Completed By: Radiologist Headache Course/Dx - Course Course Of Treatment: blood sugar 111. Discussed my concerns with patient. Because this is the worse headache of her life and because of the sudden onset which woke her from sleep and now the visual symptoms I felt the most prudent coarse would be for her to go to a tertiary center for a more extensive evalutaion. will drive her. - Differential Dx/Diagnosis Provider Diagnoses: Headache of uncertain cause Discharge - Sign-Out/Discharge Documenting (check all that apply): Discharge/Admit/Transfer - Discharge Plan Condition: Stable Disposition: TRANS HIGHER LVL OF CARE FAC Referrals: Kellie Sanchez PA [Primary Care Provider] - Additional Instructions: I suggest you go to the [facility] for evaluation of your headache Take copy of CT - Billing Disposition and Condition Condition: STABLE Disposition: Trans Higher Lvl of Care Fac
--- NOTE | 2017-08-16 16:04 | RAD ---
Indication: Headache. CT of the brain was performed without IV contrast. Ventricular structures are midline. No midline shift is noted. The extraction spaces are unremarkable. There is no evidence of intracranial mass or hemorrhage. No other high or low density lesions are identified. Mastoid air cells and paranasal sinuses are otherwise unremarkable. IMPRESSION: No intracranial mass or hemorrhage is noted.
[2017-08-16 16:20] VITALS: BP 141/98
== END 2017-08-16 16:20 | disposition short-term general hospital (02) ==
LOC: UCCORT 14:49
DX: R51 Headache (principal)
CPT/HCPCS: 70450; 99212; G0463

== ENCOUNTER 2018-09-13 08:42 | Emergency (ER) | payer BC, OTHER ==
[2018-09-13 08:55] VITALS: BP 147/100
--- NOTE | 2018-09-13 09:04 | UC ---
Headache HPI - HPI Summary HPI Summary: C/O left parietal PORTER, dull, worse with swallowing or turning her head where it becomes sharp. ? some photophobia, no nausea. h/o migraines, but not typical migraine pain. No fevers. - History Of Current Complaint Chief Complaint: UCHcelydamiguel Stated Complaint: HEADACHE Time Seen by Provider: 09/13/18 08:57 Hx Obtained From: Patient Hx Last Menstrual Period: August 22 ?: No Onset/Duration: Lasting Days - 2 days. Awoke with headache yesterday morning. Did not wake her from sleep., Worse Since - onset. Onset Of Symptoms: Sudden Initially Headache Was: Mild Currently Pain Is: Moderate Pain Intensity: 5 Timing: Constant Character: Sharp - pain with swallowing or turning her head., Dull - constant pain Aggravating Factor(s): Position Change, Other - swallowing Allevating Factor(s): Nothing Associated Signs And Symptoms: Positive: Neck Stiffness, Visual Changes - over the past week, decreased distance vision.. Negative: Dizziness, Seizure, Nausea , Fever - Allergies/Home Medications Allergies/Adverse Reactions: Allergies Allergy/AdvReac Type Severity Reaction Status Date / Time No Known Allergies Allergy Verified 09/13/18 08:55 Home Medications: Home Medications traMADol TAB* [Ultram*] 50 mg PO Q6HR PRN 09/13/18 [History Confirmed 09/13/18] PMH/Surg Hx/FS Hx/Imm Hx Cardiovascular History: Hypertension Neurological History: Migraine Other Neurological History: Fibromyalgia - Surgical History Surgical History: Yes Surgery Procedure, Year, and Place: 2011 - Family History Known Family History: Positive: Hypertension Negative: Cardiac Disease, Diabetes, Respiratory Disease - Social History Occupation: Unemployed Lives: With Family Alcohol Use: Rare Substance Use Type: None Smoking Status (MU): Never Smoked Tobacco - Immunization History Most Recent Influenza Vaccination: no Review of Systems All Other Systems Reviewed And Are Negative: Yes Eyes: Positive: Blurred Vision ENT: Positive: Sore Throat, Other - difficulty swallowing. Neurological: Positive: Headache Is Patient Immunocompromised?: No Physical Exam Triage Information Reviewed: Yes Appearance: Well-Appearing, No Pain Distress, Well-Nourished Vital Signs: Initial Vital Signs Temp 98.2 F 09/13/18 08:49 Pulse 81 09/13/18 08:49 Resp 18 09/13/18 08:49 BP 147/100 09/13/18 08:49 Pulse Ox 99 09/13/18 08:49 Vital Signs Reviewed: Yes Eye Exam: Other - Discs are sharp. ? minimal venous pulsations. Eyes: Positive: Conjunctiva Clear ENT: Positive: TMs normal, Tonsillar swelling - Grade 3- Neck: Positive: Supple, Tenderness @ - left anterior cervical nodes Respiratory Exam: Normal Cardiovascular Exam: Normal Musculoskeletal Exam: Normal Neurological Exam: Normal Psychological Exam: Normal Skin Exam: Normal Diagnostics - Laboratory Lab Results: Rapid strep is negative - Radiology No standard instances Radiology Interpretation Completed By: Radiologist Summary of Radiographic Findings: CT head is negative Headache Course/Dx - Differential Dx/Diagnosis Differential Diagnosis/HQI/PQRI: Migraine, Sinus Headache, Tension Headache, Viral Syndrome Provider Diagnosis: Viral syndrome Discharge - Sign-Out/Discharge Documenting (check all that apply): Patient Departure All imaging exams completed and their final reports reviewed: Yes - Discharge Plan Condition: Stable Disposition: HOME Patient Education Materials: Viral Syndrome (ED), Acute Headache (ED) Referrals: Linda Gallego MD [Primary Care Provider] - - Billing Disposition and Condition Condition: STABLE Disposition: Home
== END 2018-09-13 10:50 | disposition home or self-care (01) ==
LOC: UCCORT 08:42
DX: B34.9 Viral infection, unspecified (principal); I10 Essential (primary) hypertension; M79.7 Fibromyalgia
CPT/HCPCS: 70450; 87651; 99211; G0463

== ENCOUNTER 2018-11-21 11:42 | Emergency (ER) | payer OTHER ==
[2018-11-21 12:09] VITALS: BP 130/81
--- NOTE | 2018-11-21 12:58 | UC ---
Hand/Wrist HPI - HPI Summary HPI Summary: Onset of symmetrical swelling in both hands and feet for the past week or so, which does become painful and limits her ability to make a fist easily or use her hands, to the point that she left work early today to come for an assessment. Aware of increase in swelling overnight that improves over hours. No neck pain, no joint swelling, recent illness or fever. Began use of subetex early october for chronic pain, with change of preparation about 2 weeks ago due to lack of suitale effect (reviewed Up to date and buprenorphine can cause edema). She believes that the medication she started in addition in October is duloxetine. No paresthesias. 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 - History Of Current Complaint Chief Complaint: UCUpperExtremity Stated Complaint: BILATERAL HAND AND FOOT SWELLING Time Seen by Provider: 11/21/18 12:47 Hx Obtained From: Patient Hx Last Menstrual Period: 10/31 Onset/Duration: Gradual Onset, Lasting Days Severity Initially: Mild Severity Currently: Moderate Pain Intensity: 7 Character Of Pain: Aching, Stiffness Aggravating Factor(s): Movement Alleviating Factor(s): Rest Associated Signs And Symptoms: Negative: Swelling, Redness, Bruising, Numbness/ Tingling Related History: Dominant Hand Right - Risk Factors Compartment Syndrome Risk Factors: Pain - Allergies/Home Medications Allergies/Adverse Reactions: Allergies Allergy/AdvReac Type Severity Reaction Status Date / Time No Known Allergies Allergy Verified 11/21/18 12:09 Home Medications: Home Medications Antidepressant 1 dose PO QPM 11/21/18 [History Confirmed 11/21/18] Buprenorphine TAB* [Subutex TAB*] 1 mg SL TID PRN 11/21/18 [History Confirmed ] Buprenorphine TAB* [Subutex TAB*] 2 mg SL ONCE PRN 11/21/18 [History Confirmed 11/21/18] Propranolol TAB* [Inderal TAB*] 10 mg PO QPM 11/21/18 [History Confirmed ] PMH/Surg Hx/FS Hx/Imm Hx Previously Healthy: Yes - fibromyalgia Psychological History: Depression - Surgical History Surgical History: Yes Surgery Procedure, Year, and Place: 2011 - Family History Known Family History: Positive: Hypertension Negative: Cardiac Disease, Diabetes, Respiratory Disease - Social History Occupation: Employed Full-time Lives: With Family Alcohol Use: None Substance Use Type: None Smoking Status (MU): Never Smoked Tobacco - Immunization History Most Recent Influenza Vaccination: no Review of Systems All Other Systems Reviewed And Are Negative: Yes Constitutional: Positive: Fatigue Respiratory: Positive: Negative Cardiovascular: Positive: Negative Gastrointestinal: Positive: Negative Genitourinary: Positive: Negative Musculoskeletal: Positive: Arthralgia, Edema Neurological: Positive: Negative Is Patient Immunocompromised?: No Physical Exam Triage Information Reviewed: Yes Appearance: Well-Appearing - looks fatigued, Pain Distress - mild to moderate Vital Signs: Initial Vital Signs Temp 98.3 F 11/21/18 12:00 Pulse 70 11/21/18 12:00 Resp 22 11/21/18 12:00 BP 130/81 11/21/18 12:00 Pulse Ox 100 11/21/18 12:00 ENT: Positive: Pharynx normal Neck: Positive: Supple, Nontender, No Lymphadenopathy Respiratory: Positive: Lungs clear, Normal breath sounds Cardiovascular: Positive: RRR, No Murmur Musculoskeletal Exam: Other - mild non-pitting swelling of hands and feet, diffuse. No evidence of synovitis small joints of hands, wrists. 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 Negative Phalen's and tinel's Neurological: Positive: Alert, Muscle Tone Normal, Fatigued Skin Exam: Other - thickened skin right hand Hand/Wrist Course/Dx - Course Course Of Treatment: Reviewed meds, and discussed that timing and hx suggest that the fluid retention could be related to buprenorphine. Suggested labs be done to check renal and liver function. She is 4 months , not , will rule out thyroid disease and renal and liver dysfunction. - Differential Dx/Diagnosis Differential Diagnosis/HQI/PQRI: Carpal Tunnel Syndrome Provider Diagnosis: Edema Discharge ED - Sign-Out/Discharge Documenting (check all that apply): Patient Departure All imaging exams completed and their final reports reviewed: No Studies - Discharge Plan Condition: Stable Disposition: HOME Patient Education Materials: Edema (ED) Referrals: Linda Lee MD [Primary Care Provider] - Additional Instructions: The cause of your swelling/fluid retention is not clear, but could be due to buprenorphine, but labs have been done to assess other causes of this. I advised that you schedule a follow up visit aravind lee for Monday or Monday to review the results. Continue present use of ibuprofen and acetaminophen for control of pain. - Billing Disposition and Condition Condition: STABLE Disposition: Home
[2018-11-21 19:10] LABS: ABS Basophils 0.1 10^3/ul (0-0.2); ABS Eosinophils 0.2 10^3/ul (0-0.6); ABS Lymphocytes 2.1 10^3/ul (1.0-4.8); ABS Monocytes 0.5 10^3/ul (0-0.8); ABS Neutrophils 3.7 10^3/ul (1.5-7.7); Eosinophil % 2.5 %; Hematocrit 40 % (35-47); Hemoglobin 13.3 g/dL (12.0-16.0); Lymphocyte % 32.4 %; Mean Corpuscular HGB Conc 34 g/dL (31-36); Mean Corpuscular Hemoglobin 29 pg (27-31); Mean Corpuscular Volume 85 fL (80-97); Mean Platelet Volume 8.9 fL (7.4-10.4); Nucleated Red Blood Cells % 0.4; Platelet Count 241 10^3/uL (150-450); Red Blood Count 4.66 10^6 /uL (3.70-4.87); Red Cell Distribution Width 14 % (10-15); White Blood Count 6.4 10^3/uL (3.5-10.8)
[2018-11-21 19:40] LABS: TSH (Thyroid Stimulating Horm) 0.97 mcIU/mL (0.34-5.60)
[2018-11-21 21:17] LABS: Albumin 4.4 g/dL (3.2-5.2); Calcium 9.7 mg/dL (8.6-10.3); Potassium 3.8 mmol/L (3.5-5.0); Total Bilirubin 0.5 mg/dL (0.2-1.0)
[2018-11-21 21:24] LABS: Albumin/Globulin Ratio 1.9 (1-3); BUN/Creatinine Ratio 19.4 (8-20); EGFR African American 125.9 (>60); EGFR Non-African American 104.1 (>60); Globulin 2.3 g/dL (2-4); Total Protein 6.7 g/dL (6.4-8.9)
== END 2018-11-21 13:45 | disposition home or self-care (01) ==
LOC: UCCORT 11:42
DX: R60.0 Localized edema (principal); R53.83 Other fatigue; M79.7 Fibromyalgia; F32.9 Major depressive disorder, single episode, unspecified
CPT/HCPCS: 36415; 80053; 84443; 85025; 99211; G0463

== ENCOUNTER 2019-01-02 17:44 | Emergency (ER) | payer OTHER ==
[2019-01-02 19:37] VITALS: BP 146/90
--- NOTE | 2019-01-02 19:59 | ED ---
Skin Complaint - HPI Summary HPI Summary: 28 yr old with one painful skin tag right axilla. The skin tag changed color over the past two days, and is dark. rubbing it makes it worse. She has no fever or chills. She does not feel sick. No other complaints. - History of Current Complaint Chief Complaint: UCSkin Time Seen by Provider: 01/02/19 19:46 Stated Complaint: PAINFUL SKIN TAGS UNDER ARMS Hx Last Menstrual Period: 12/18/18 Pain Intensity: 6 - Allergy/Home Medications Allergies/Adverse Reactions: Allergies Allergy/AdvReac Type Severity Reaction Status Date / Time No Known Allergies Allergy Verified 01/02/19 19:29 Home Medications: Home Medications Otc Skin Tag Remover 1 dose TOPICAL Q12H PRN 01/02/19 [History Confirmed ] PMH/Surg Hx/FS Hx/Imm Hx Cardiovascular History: Reports: Hx Hypertension - Surgical History Surgery Procedure, Year, and Place: 2011 Infectious Disease History: No Infectious Disease History: Denies: Traveled Outside the [place] in Last 30 Days - Family History Known Family History: Positive: Hypertension Negative: Cardiac Disease, Diabetes, Respiratory Disease - Social History Alcohol Use: None Substance Use Type: Reports: None Smoking Status (MU): Former Smoker Review of Systems Positive: Other All Other Systems Reviewed And Are Negative: Yes Physical Exam Triage Information Reviewed: Yes Vital Signs On Initial Exam: Initial Vitals Temp Pulse Resp BP Pulse Ox 98.7 F 76 20 146/90 99 01/02/19 19:34 01/02/19 19:34 01/02/19 19:34 01/02/19 19:34 01/02/19 19:34 Vital Signs Reviewed: Yes Appearance: Positive: Well-Appearing Skin: Positive: Other - skin tag right axilla wthat is about 3 mm in diameter and dark in color. No obvious cellulitis to axilla. left axilla with skin tags but no cellulitis. Head/Face: Positive: Normal Head/Face Inspection Diagnostics - Vital Signs Vital Signs Temp Pulse Resp BP Pulse Ox 01/02/19 19:34 98.7 F 76 20 146/90 99 - Laboratory Lab Statement: Any lab studies that have been ordered have been reviewed, and results considered in the medical decision making process. Course/Dx - Course Course Of Treatment: 28 yr old with skin tags. She has dark color to one small skin tag. It may be undergoing necrosis. Referral to general surgery. Cover with keflex. Tylenol and motrin for pain. - Diagnoses Provider Diagnoses: Skin tag, Hypertension Discharge ED - Sign-Out/Discharge Documenting (check all that apply): Patient Departure All imaging exams completed and their final reports reviewed: No Studies - Discharge Plan Condition: Good Disposition: HOME Prescriptions: Cephalexin CAP* [Keflex CAP*] 500 mg PO TID #30 cap Patient Education Materials: Cellulitis (ED), Hypertension (ED) Referrals: Linda Gallego MD [Primary Care Provider] - Juarez Dillon [Medical Doctor] - 2 Days Additional Instructions: You have skin tags that should be removed. YOu should call general surgery as soon as possible for followup. - Billing Disposition and Condition Condition: GOOD Disposition: Home
== END 2019-01-02 20:02 | disposition home or self-care (01) ==
LOC: UCCORT 17:44
DX: L91.8 Other hypertrophic disorders of the skin (principal); I10 Essential (primary) hypertension; Z87.891 Personal history of nicotine dependence
CPT/HCPCS: 99212; G0463

== ENCOUNTER 2019-03-03 19:22 | Emergency (ER) | payer OTHER ==
[2019-03-03 19:34] VITALS: BP 166/97
--- NOTE | 2019-03-03 20:11 | UC ---
Abdominal Pain Female HPI - HPI Summary HPI Summary: Had tubal ligation 2 days ago and umbilical site is extremely tender. No fever. - History of Current Complaint Chief Complaint: UCAbdominalPain Stated Complaint: ABDOMINAL PAIN/ POST SURGICAL Time Seen by Provider: 03/03/19 19:42 Hx Obtained From: Patient Hx Last Menstrual Period: tubal ?: No Onset/Duration: Sudden Onset, Lasting Days - 2, Still Present Timing: Constant Severity Initially: Moderate Severity Currently: Moderate Pain Intensity: 6 Location: Other - at umbilical incision site Radiates: No Character: Burning, Sharp Aggravating Factor(s): Movement, Other: - touch/ ice Alleviating Factor(s): Nothing Associated Signs and Symptoms: Positive: Negative Allergies/Adverse Reactions: Allergies Allergy/AdvReac Type Severity Reaction Status Date / Time No Known Allergies Allergy Verified 03/03/19 19:29 PMH/Surg Hx/FS Hx/Imm Hx Other Neurological History: Fibromyalgia - Surgical History Surgical History: Yes Surgery Procedure, Year, and Place: Gallbladder 2011. Tubal ligation - Family History Known Family History: Positive: Hypertension Negative: Cardiac Disease, Diabetes, Respiratory Disease - Social History Occupation: Employed Full-time Lives: With Family Alcohol Use: None Substance Use Type: None Smoking Status (MU): Former Smoker When Did the Patient Quit Smoking/Using Tobacco: 2008 - Immunization History Most Recent Influenza Vaccination: no Review of Systems All Other Systems Reviewed And Are Negative: Yes Gastrointestinal: Positive: Abdominal Pain Physical Exam Triage Information Reviewed: Yes Appearance: Well-Appearing, Pain Distress - moderate, worse with movement, Obese Vital Signs: Initial Vital Signs Temp 98.4 F 03/03/19 19:30 Pulse 94 03/03/19 19:30 Resp 14 03/03/19 19:30 BP 166/97 03/03/19 19:30 Pulse Ox 100 03/03/19 19:30 Vital Signs Reviewed: Yes Eyes: Positive: Conjunctiva Clear ENT: Positive: Pharynx normal, TMs normal Neck exam: Normal Neck: Positive: Supple Respiratory Exam: Normal Cardiovascular Exam: Normal Abdomen Description: Positive: No Organomegaly, Soft. Negative: Nontender - extremely tender around umbilical excision with normal bruising and healing redness. No sign of infection. Bowel Sounds: Positive: Present Musculoskeletal Exam: Normal Neurological: Positive: Other: - increased sensitivity to pinprick around the umbilical incision. Psychological Exam: Normal Skin Exam: Normal Abd Pain Female Course/Dx - Differential Dx/Diagnosis Differential Diagnosis: Appendicitis, Bowel Obstruction, Ovarian Cyst, Pancreatitis Provider Diagnosis: Neuralgia and neuritis, Elevated blood pressure reading Discharge ED - Sign-Out/Discharge Documenting (check all that apply): Patient Departure All imaging exams completed and their final reports reviewed: No Studies - Discharge Plan Condition: Stable Disposition: HOME Prescriptions: Gabapentin CAP(*) [Neurontin 300 CAP(*)] 300 mg PO BEDTIME #30 cap Patient Education Materials: Surgical Site Infections (ED), Paresthesia (ED) Referrals: Linda Gallego MD [Primary Care Provider] - Additional Instructions: Site is not infected. It is just an injured nerve being hypersensitive. Nerve Contusion: A bruised nerve causes the nerve to be irritated and extra sensitive to all sensations. Ice can make it feel worse. Jeff wraps frequently aren't tolerated either. It may take weeks to resolve. - Billing Disposition and Condition Condition: STABLE Disposition: Home
== END 2019-03-03 20:20 | disposition home or self-care (01) ==
LOC: UCCORT 19:22
DX: M79.2 Neuralgia and neuritis, unspecified (principal); R03.0 Elevated blood-pressure reading, without diagnosis of hypertension; M79.7 Fibromyalgia; R10.9 Unspecified abdominal pain; Z87.891 Personal history of nicotine dependence
CPT/HCPCS: 99212; G0463